=== PATIENT | female | born 1990 | race Caucasian/White ===

== ENCOUNTER 2017-08-11 08:41 | Emergency (ER) | payer MEDICAID, SELFPAY ==
[2017-08-11 08:43] VITALS: BP 116/78; PULSE 98; RESP 17; TEMP 36.7; O2SAT 100; BMI 23.5
--- NOTE | 2017-08-11 10:02 | EKG12_ITS ---
Test Reason : CP Blood Pressure : / mmHG Vent. Rate : 070 BPM Atrial Rate : 070 BPM P-R Int : 118 ms QRS Dur : 066 ms QT Int : 360 ms P-R-T Axes : 044 -07 025 degrees QTc Int : 388 ms Normal sinus rhythm with sinus arrhythmia Normal ECG Confirmed by MARGARITA JOSHI, LAUREL ([id number]), index editor GERTRUDE MORALES ([id number]) on 08/15/2017 3:44:26 PM Referred By: KEREN Confirmed By:LAUREL AVILA MD
[2017-08-11 10:14] VITALS: PULSE 86; RESP 20; O2SAT 100
[2017-08-11] MEDS: Ketorolac 30 MG/ML Syringe IV (10:14)
--- NOTE | 2017-08-11 10:20 | RAD_ITS ---
STUDY: X-RAY CHEST REASON FOR EXAM: Female, 26 years old. Chest pain. TECHNIQUE: PA and lateral views of the chest. COMPARISON: Comparison is made with prior examination dated March 05, 2016. FINDINGS: EKG electrodes are seen. The lungs are clear and expanded. There is no demonstrated pleural abnormality. Normal size heart. Normal mediastinum and huyen. Normal visualized pulmonary arteries. Normal visualized aortic arch and descending thoracic aorta. There is a minimal levoscoliosis of the thoracic spine. Normal visualized ribs, clavicles, and shoulders. There is no demonstrated abnormality of the visualized soft tissue structures of the upper abdomen. RAD/Chest PA and Lateral IMPRESSION: Normal x-ray examination of the chest. Electronically Signed: Storm Rodriguez MD at 10:58 EDT Tel [phone], Service support ,
[2017-08-11 11:08] VITALS: BP 94/62; PULSE 88; RESP 17; O2SAT 100
--- NOTE | 2017-08-11 11:32 | ED.VISSUMM ---
- ER Visit Summary Date of Service: 08/11/17 Chief Complaint: Right-sided chest pain History of Present Illness: The patient is a 26 F who states that today she developed pain on the right anterior chest. She describes it as sharp. Worse with movement of the torso breathing and coughing. Is relieved by nothing. It still hurts at rest though not as bad. She denies any recent surgery she does note a history of renal cancer for which she had a partial nephrectomy. She is on oral contraceptives but does not smoke. No personal or familial history of DVT PE. Physical Examination: Afebrile vital signs are stable Gen: Well-nourished well-developed Head: Normocephalic atraumatic Eyes: Perrl EOMI ENT: TMs clear no rhinorrhea moist mucous membranes Neck: Supple no lymphadenopathy no JVD nontender CVS: Regular rate rhythm no murmurs normal S1-S2 Respiratory: No distress clear to auscultation bilaterally right anterior chest is tender to palpation which reproduces the patient's symptoms. She also has tenderness along the same ribs posteriorly. Abdomen: Soft nontender nondistended normal bowel sounds no masses Back: Nontender Extremity: Nontender no edema Skin: Normal color no rash Neuro: alert orientated ?3 CN II-XII intact normal strength sensation reflexes gait cerebellar Psych: Normal affect normal mood Test Results: EKG done per protocol shows a sinus rhythm at a rate of 70 test x-rays negative. D-dimer 0.40. Emergency Department Course and Treatment: Patient received Toradol. I believe this to be chest wall related. Patient will be discharged home instructions for anti-inflammatories. Return if worsening or concerns Impression: 1. Chest wall pain This note was generated with [employer] dictation software. It may contain incorrect words, spelling, and punctuation that were not noted in review of the chart prior to signing ED Disposition - Plan for ED Patient: Disposition: Home or Assisted Living Chief Complaint: Chest Pain Instructions: ED Chest Pain Costochondritis Referrals: Sebastián Shields MD [Primary Care Provider] - 1 Week if not improving Additional Instructions: Motrin 600 mg every 6-8 hours as needed for pain
[2017-08-11 11:34] VITALS: BP 106/71; PULSE 86; RESP 16; O2SAT 100
--- NOTE | 2017-08-11 11:36 | ED.DCSUM_ITS ---
- ER Visit Summary Date of Service: 08/11/17 Chief Complaint: Right-sided chest pain History of Present Illness: The patient is a 26 F who states that today she developed pain on the right anterior chest. She describes it as sharp. Worse with movement of the torso breathing and coughing. Is relieved by nothing. It still hurts at rest though not as bad. She denies any recent surgery she does note a history of renal cancer for which she had a partial nephrectomy. She is on oral contraceptives but does not smoke. No personal or familial history of DVT PE. Physical Examination: Afebrile vital signs are stable Gen: Well-nourished well-developed Head: Normocephalic atraumatic Eyes: Perrl EOMI ENT: TMs clear no rhinorrhea moist mucous membranes Neck: Supple no lymphadenopathy no JVD nontender CVS: Regular rate rhythm no murmurs normal S1-S2 Respiratory: No distress clear to auscultation bilaterally right anterior chest is tender to palpation which reproduces the patient's symptoms. She also has tenderness along the same ribs posteriorly. Abdomen: Soft nontender nondistended normal bowel sounds no masses Back: Nontender Extremity: Nontender no edema Skin: Normal color no rash Neuro: alert orientated ?3 CN II-XII intact normal strength sensation reflexes gait cerebellar Psych: Normal affect normal mood Test Results: EKG done per protocol shows a sinus rhythm at a rate of 70 test x- rays negative. D-dimer 0.40. Emergency Department Course and Treatment: Patient received Toradol. I believe this to be chest wall related. Patient will be discharged home instructions for anti-inflammatories. Return if worsening or concerns Impression: 1. Chest wall pain This note was generated with [employer] dictation software. It may contain incorrect words, spelling, and punctuation that were not noted in review of the chart prior to signing ED Disposition - Plan for ED Patient: Disposition: Home or Assisted Living Chief Complaint: Chest Pain Instructions: ED Chest Pain Costochondritis Referrals: Sebastián Shields MD [Primary Care Provider] - 1 Week if not improving Additional Instructions: Motrin 600 mg every 6-8 hours as needed for pain
== END 2017-08-11 11:47 | disposition home or self-care (01) ==
PROVIDERS: Emergency Provider Emergency Medicine; Family Provider Family Medicine; PCP Family Medicine
DX: R07.89 Other chest pain (principal)
CPT/HCPCS: 71046; 85379; 93005; 96374; 99284; A4216

== ENCOUNTER 2018-11-15 22:18 | Emergency (ER) | payer MEDICAID, SELFPAY ==
[2018-11-15 22:19] VITALS: BP 116/77; PULSE 138; RESP 18; TEMP 37.1; O2SAT 99; BMI 23.1
--- NOTE | 2018-11-15 22:27 | CT_ITS ---
STUDY: CT BRAIN WITHOUT CONTRAST REASON FOR EXAM: Female, 28 years old. Fall RADIATION DOSAGE (If Supplied By Facility): CTDIvol = ( 44.99 ) mGy, DLP = ( 796.11 ) mGycm TECHNIQUE: Transaxial CT imaging of the brain was performed without administration of intravenous contrast material. Individualized dose optimization techniques were used for this CT. COMPARISON: No relevant priors. FINDINGS: Normal soft tissue structures. Normal calvarium. Normal size ventricles and extra-axial spaces for the patient's age. Normal white matter tracts of the cerebral hemispheres. Normal basal ganglia and thalami. Normal brainstem. Normal cerebellum. There is no intracranial hemorrhage. There are no findings of an acute ischemic infarction. Normal visualized paranasal sinuses. CT/Brain/Head without Contrast IMPRESSION: Normal unenhanced CT scan of the brain. Electronically Signed: Jeremy Luna DO at 23:01 EDT Tel [phone], Service support ,
--- NOTE | 2018-11-15 22:53 | ED.DCSUM_ITS ---
- ER Visit Summary Date of Service: 11/15/18 Chief Complaint: Fall History of Present Illness: The patient is a 28 F presenting after fall. Patient states she was cleaning her bathroom and slipped and fell. She hit her head on the corner of the wall. She did not lose consciousness. No amnesia to the event. She denies nausea or vomiting. States she has had persistent pain to left side of her head throughout the day. She has tried ibuprofen. She is not on anticoagulants. She states she has also had a sore throat for the past several days. She states it is starting to improve. She has had subjective fever. She denies cough, rhinorrhea, or other complaints. Physical Examination: Vitals are stable. Patient is afebrile. Alert no acute distress. HEENT exam PERRL, EOMI. bilateral tonsillar exudate, uvula midline Neck is nontender, no meningismus Lungs are clear and equal bilaterally. Heart is regular and tachycardic Abdomen is soft nontender nondistended. Extremities are unremarkable. Skin is warm and dry. No rash No focal neurologic deficit. Remainder of exam is unremarkable. Emergency Department Course and Treatment: CT head shows no acute process. She was given IV fluids, Tylenol, Pen-Vee K. She is given head injury instructions. Advised to follow-up with her primary care physician. Advised return to ED for worsening complaints. Disposition: Discharge home Impression: Closed head injury status post mechanical fall; pharyngitis This note was generated with [employer] dictation software. It may contain incorrect words, spelling, and punctuation that were not noted in review of the chart prior to signing ED Disposition - Plan for ED Patient: Instructions: CONCUSSION, No Wake Up, PHARYNGITIS, Strep (Presumed) Prescriptions: Penicillin V Potassium 500 mg PO 4X/DAY #40 tab Prescription Printed Referrals: Sebastián Shields MD [Primary Care Provider] -
--- NOTE | 2018-11-15 23:05 | ED.DEP ---
ED Disposition - Plan for ED Patient: Instructions: CONCUSSION, No Wake Up Referrals: Sebastián Shields MD [Primary Care Provider] -
--- NOTE | 2018-11-15 23:17 | ED.DEP ---
ED Disposition - Plan for ED Patient: Instructions: CONCUSSION, No Wake Up, PHARYNGITIS, Strep (Presumed) Prescriptions: Penicillin V Potassium 500 mg PO 4X/DAY #40 tablet Referrals: Sebastián Shields MD [Primary Care Provider] -
[2018-11-15] MEDS: Acetaminophen 500 MG Tablet 1000 MG PO (23:27)
[2018-11-15] MEDS: Penicillin Vk 250 MG Tablet 500 MG PO (23:27)
[2018-11-15] MEDS: 0.9% Normal Saline 1,000 ML 999 ML IV (23:27)
[2018-11-16 00:57] VITALS: BP 96/72; PULSE 111; RESP 16; O2SAT 98
--- NOTE | 2018-11-16 00:58 | ED.RN ---
DR. GRANDE MADE AWARE OF PT PULSE OF 111 AND BP OF 96/72. SAID PT WAS GOOD FOR D/C. PT VERBALIZES UNDERSTANDING OF WRITTEN AND VERBAL DISCHARGE PAPERWORK PT D/C.
== END 2018-11-16 00:55 | disposition home or self-care (01) ==
PROVIDERS: Emergency Provider Emergency Medicine; Family Provider Family Medicine; PCP Family Medicine
DX: S09.90XA Unspecified injury of head, initial encounter (principal); J02.9 Acute pharyngitis, unspecified; W01.0XXA Fall on same level from slipping, tripping and stumbling without subsequent striking against object, initial encounter; Y93.9 Activity, unspecified; Y92.9 Unspecified place or not applicable
CPT/HCPCS: 70450; 96360; 99285; J7030; A4216

== ENCOUNTER 2019-03-27 17:50 | Emergency (ER) | payer MEDICAID, SELFPAY ==
[2019-03-27 17:51] VITALS: BP 124/78; PULSE 100; RESP 16; TEMP 37.1; O2SAT 100; BMI 24.4
--- NOTE | 2019-03-27 18:19 | ED.DCSUM_ITS ---
History of Present Illness Chief Complaint: Abd Pain Informant: Patient - Abdominal Pain/Flank Pain Onset: Today - Mild cramping all day today in her lower abdomen, sharp pain started 15 minutes prior to arrival Context: Gradual Onset Timing: Continuous Quality: Cramping, Sharp Location: - - Lower abdomen, nonlateralizing, with radiation to low back Current Severity: Moderate Maximum Severity: Severe Worsened by: Nothing Relieved by: Nothing - Has tried no medications today - Nausea/Vomiting/Emesis GI Symptom: Nausea. Negative for: Vomiting - Diarrhea/Melena/Hematochezia GI Symptom: Negative for: Diarrhea, Melena, Hematochezia Associated Symptoms: Negative for: Dysuria, Frequency, Hematuria, Urgency LMP: 2-3 weeks ago, but had vaginal bleeding like a menstrual cycle 8 days ago that only lasted 1 day and none since. Usually regular. Denies presumed . Narrative: Normal bowel movement today, no blood or melena. No urinary symptoms. Denies any vaginal discharge or history of STDs or suspicion for an STD currently. No fevers. Had a history of kidney cancer and had the mass removed from her right kidney. Recent Illness/Hospitalization: No - Past Medical History (1) Renal cancer Status: Chronic Past Medical History - Allergies and Home Meds Allergies/Adverse Reactions: Allergies No Known Allergies Allergy (Verified 03/27/19 17:51) Primary Care Physician: Sebastián Shields MD [Primary Care Provider] - Surgical History: - - Renal cancer resection right kidney Smoking Status: Never smoker Drugs: None Review of Systems General: Denies: Chills, Fever, Sweats Eyes: Denies: Visual changes - bilaterally, Diplopia ENT: Denies: Rhinorrhea, Sore throat Cardiovascular: Denies: Chest pain, Palpitations Respiratory: Denies: Dyspnea, Cough, Dyspnea on exertion Gastrointestinal: Reports: Abdominal pain, Nausea. Denies: Vomiting, Diarrhea, Melena, Hematochezia Genitourinary: Reports: - - No vaginal bleeding or discharge currently. Denies: Dysuria, Hematuria, Frequency Musculoskeletal: Reports: Back pain. Denies: Extremity Pain Skin: Denies: Rash, Wounds Neurological: Denies: Headache, Weakness, Numbness Physical Exam Vital Signs/Narrative: Vital Signs Temp Pulse Resp BP Pulse Ox 03/27/19 17:51 98.7 F 100 16 124/78 H 100 Inital Vital Signs reviewed: Yes General: Well nourished, Well developed, No Acute Distress - Appearing, conversive, smiles Head: Normocephalic, Atraumatic Eyes: Perrl, EOMI ENT: Moist mucous membranes, No rhinorrhea Neck: Supple, Nontender Cardiovascular: Regular rate, Regular rhythm, No murmurs Respiratory: No distress, CTA bilaterally, Chest nontender Abdomen: Soft, Nondistended, Normal bowel sounds, Tender - Throughout lower abdomen, nonlateralizing. No other abdominal tenderness.. Negative for: Guarding, Rebound tenderness, Pulsatile mass Back: Nontender, Normal Inspection. Negative for: CVA tenderness Extremities: Nontender, No edema Skin: Normal color, No rash, No Trauma Neurological: Alert, Oriented x3, Cranial nerves II-XII grossly intact, Normal Strength, Normal Sensation, Normal Gait Psychological: Normal affect, Normal Mood Diagnostic/Tx/Re-eval Laboratory Results 03/27/19 03/27/19 03/27/19 18:55 18:55 18:55 WBC 7.8 RBC 4.07 L Hgb 12.3 Hct 36.5 L MCV 89.7 MCH 30.2 MCHC 33.7 RDW Std Deviation 38.7 RDW Coeff of Biju 11.9 Plt Count 250 MPV 10.3 Immature Gran % (Auto) 0.400 Neut % (Auto) 56.8 Lymph % (Auto) 30.1 [place] % (Auto) 7.7 Eos % (Auto) 4.5 Baso % (Auto) 0.5 Absolute Neuts (auto) 4.4 Absolute Lymphs (auto) 2.34 Nucleated RBC % 0 Sodium 141 Potassium 3.8 Chloride 104 Carbon Dioxide 33.0 H Anion Gap 4 L BUN 15 Creatinine 1.01 Estim Creat Clear Calc 58.50 Est GFR (MDRD) Af Amer 83 Est GFR (MDRD) Non-Af 68 BUN/Creatinine Ratio 14.9 Glucose 103 Calcium 8.5 Serum , Qual NEGATIVE Urine Color Urine Clarity Urine pH Ur Specific [place] Urine Protein Urine Glucose (UA) Urine Ketones Urine Occult Blood Urine Nitrite Urine Bilirubin Urine Urobilinogen Ur Leukocyte Esterase Urine RBC Urine WBC Ur Squamous Epith Cells Urine Bacteria Urine Mucus 03/27/19 19:15 WBC RBC Hgb Hct MCV MCH MCHC RDW Std Deviation RDW Coeff of Biju Plt Count MPV Immature Gran % (Auto) Neut % (Auto) Lymph % (Auto) [place] % (Auto) Eos % (Auto) Baso % (Auto) Absolute Neuts (auto) Absolute Lymphs (auto) Nucleated RBC % Sodium Potassium Chloride Carbon Dioxide Anion Gap BUN Creatinine Estim Creat Clear Calc Est GFR (MDRD) Af Amer Est GFR (MDRD) Non-Af BUN/Creatinine Ratio Glucose Calcium Serum , Qual Urine Color Yellow Urine Clarity Clear Urine pH 7.0 Ur Specific [place] 1.005 Urine Protein Negative Urine Glucose (UA) Normal Urine Ketones Negative Urine Occult Blood Negative Urine Nitrite Negative Urine Bilirubin Negative Urine Urobilinogen Normal Ur Leukocyte Esterase 100 H Urine RBC 0-5 SEEN Urine WBC 0-5 SEEN Ur Squamous Epith Cells 0-5 SEEN Urine Bacteria 0 SEEN Urine Mucus 0 SEEN - Medical Decision Making Patient feels much better after Toradol. I suspect this could have been uterine pain, however with a negative no emergent ultrasound is indicated at this time. I do not suspect that she has torsion with nonlateralizing pain and such a benign exam. Her labs are unremarkable otherwise and her urinalysis is negative. Since Toradol helped so much I will place her on Naprosyn and advised that she follow-up with her network support as an outpatient. She is comfortable with that plan we discussed reasons to return. ED Disposition - Plan for ED Patient: Disposition: Home or Assisted Living Diagnosis: Lower abdominal pain Instructions: ABDOMINAL PAIN, Unknown Cause, (Female) Prescriptions: Naproxen [Naprosyn] 500 mg PO BID PRN #20 tab Transmission Status: Pending to [id number] Referrals: Sebastián Shields MD [Primary Care Provider] - [facility] [Provider Group] - 1 Week if not improving
[2019-03-27] MEDS: Ketorolac 30 MG/ML Syringe IV (19:05)
[2019-03-27] MEDS: Ondansetron 4 MG/2 ML Vial IV (19:05)
[2019-03-27 19:17] LABS: Absolute Lymphocyte Count 2.34 X10^3/uL (0.83-4.51); Absolute Neutrophil Count 4.4 X10^3/uL (2.0-7.7); Basophil# 0.04 X10^3/uL; Basophil% 0.5 % (0-1); Eosinophil# 0.35 X10^3/uL; Eosinophils% 4.5 % (0-5); Hematocrit 36.5 % (37-47); Hemoglobin 12.3 g/dL (12.0-15.0); Lymphocyte # 2.34 X10^3/ul (4.0); Lymphocyte % 30.1 % (19-41); Mean Corp Hgb Conc 33.7 g/dL (32-36); Mean Corpuscular Hgb 30.2 pg (27.0-32.0); Mean Corpuscular Volume 89.7 fL (81-99); Mean Platelet Vol. 10.3 fl (6.2-12.0); Monocyte% 7.7 % (0-10); NRBC Flagged by Analyzer 0 % (0-5); Neutrophil # 4.42 X10^3/uL (2.7-7.7); Neutrophil % 56.8 % (47-70); Platelet Count 250 K/mm3 (150-450); RBC Distribution Width CV 11.9 % (11.6-14.6); RBC Distribution Width SD 38.7 fl (35.1-43.9); Red Blood Count 4.07 M/mm3 (4.2-5.4); White Blood Count 7.8 K/mm3 (4.4-11.0)
[2019-03-27 19:21] LABS: Bacteria 0 SEEN /hpf (None Seen); Color, Urine Yellow (Yellow); Glucose, Dipstick Normal (Normal); Ketone-Dipstick Negative (Negative); Leukocyte Esterase-Dipstick 100 /ul (Negative); Mucous, Urine 0 SEEN /hpf (<or=2+); Nitrite-Dipstick Negative (Negative); Occult Blood-Urine Negative /ul (Negative); Protein-Dipstick Negative (Negative); Specific Gravity, Urine 1.005 (1.002-1.030); Urine Bilirubin Dipstick Negative (Negative); Urine Clarity Clear (Clear); Urine Urobilinogen Normal (Normal)
[2019-03-27 19:27] LABS: Red Blood Cells-Urine 0-5 SEEN /hpf (0-5); Squamous Epithelial Cells - UA 0-5 SEEN /hpf (5-10); White Blood Cells 0-5 SEEN /hpf (0-5)
[2019-03-27 19:29] LABS: Internal QC Validated? YES +Cl - CLEAR BKGD; Pregnancy, Serum, hCG Quali. NEGATIVE Negative
[2019-03-27 19:34] LABS: Anion Gap 4 (5-15); BUN 15 mg/dL (7-18); BUN/Creat Ratio 14.9 RATIO (10-20); Calcium,Total 8.5 mg/dL (8.5-10.1); Chloride 104 mmol/L (98-107); Creatinine, Serum 1.01 mg/dL (0.55-1.02); EST Glomerular Filtration Rate 68 mL/min (>60); Est Glom Filt Rate - Afr Amer 83 mL/min (>60); Glucose 103 mg/dL (74-106); Potassium 3.8 mmol/L (3.5-5.1); Sodium Level 141 mmol/L (136-145)
== END 2019-03-27 20:34 | disposition home or self-care (01) ==
PROVIDERS: Emergency Provider Emergency Medicine; PCP Family Medicine
DX: R10.30 Lower abdominal pain, unspecified (principal); R11.0 Nausea; M54.9 Dorsalgia, unspecified; Z85.528 Personal history of other malignant neoplasm of kidney
CPT/HCPCS: 80048; 81001; 84703; 85025; 96374; 96375; 99283; A4216; J2405

== ENCOUNTER 2020-02-10 10:59 | Emergency (ER) | payer MEDICAID, SELFPAY ==
[2020-02-10 11:01] VITALS: BP 115/68; PULSE 112; RESP 17; TEMP 36.9; O2SAT 98; BMI 24.4
--- NOTE | 2020-02-10 12:33 | ED.RN ---
pt went to ob
== END 2020-02-10 12:35 | disposition left against medical advice (07) ==
LOC: ED 11:34
PROVIDERS: Emergency Provider Emergency Medicine; PCP Family Medicine
DX: Z53.21 Procedure and treatment not carried out due to patient leaving prior to being seen by health care provider (principal)

== ENCOUNTER 2020-02-10 11:10 | Outpatient (CLI) | payer MEDICAID, SELFPAY ==
[2020-02-10] VITALS (20 sets, daily range): BP systolic 97–113; BP diastolic 50–75; PULSE 95–167; TEMP 36.8–37.1; O2SAT 90–100; BMI 24.4; BMI 25.7
[2020-02-10 12:15] LABS: Mucous, Urine 0 SEEN /hpf (<or=2+); Red Blood Cells-Urine 0 SEEN /hpf (0-5)
[2020-02-10 12:16] LABS: Color, Urine Yellow (Yellow); Glucose, Dipstick Normal (Normal); Ketone-Dipstick Negative (Negative); Leukocyte Esterase-Dipstick 500 /ul (Negative); Nitrite-Dipstick Negative (Negative); Occult Blood-Urine Negative /ul (Negative); Protein-Dipstick Negative (Negative); Urine Bilirubin Dipstick Negative (Negative); Urine Clarity Cloudy (Clear); Urine Urobilinogen Normal (Normal)
[2020-02-10 12:30] LABS: Bacteria 2+ /hpf (None Seen); Squamous Epithelial Cells - UA 5-10 SEEN /hpf (5-10); White Blood Cells 10-25 SEEN /hpf (0-5)
[2020-02-10 12:46] LABS: Fetal Fibronectin Negative
[2020-02-10] MEDS: Betamethasone/Betamethasone 30 MG/5 ML Vial 12 MG IM (12:54)
[2020-02-10] MEDS: Lactated Ringers 1,000 ML 999 ML IV (13:25)
[2020-02-10 13:33] LABS: Hematocrit 31.9 % (37-47); Mean Corp Hgb Conc 34.5 g/dL (32-36); Mean Corpuscular Hgb 30.9 pg (27.0-32.0); Mean Corpuscular Volume 89.6 fL (81-99); Mean Platelet Vol. 10.8 fl (6.2-12.0); Platelet Count 154 K/mm3 (150-450); RBC Distribution Width CV 12.2 % (11.6-14.6); RBC Distribution Width SD 39.6 fl (35.1-43.9); Red Blood Count 3.56 M/mm3 (4.2-5.4); White Blood Count 15.6 K/mm3 (4.4-11.0)
[2020-02-10] MEDS: Lactated Ringers 1,000 ML 150 ML IV (14:50)
[2020-02-10] MEDS: Magnesium Sulfate 4gm/100mL 4 GM/100 ML IV.SOLN. IV (15:01)
--- NOTE | 2020-02-10 15:10 | OB.TRI.NOTE ---
<Juliette Alvarez - Last Filed: 02/10/20 15:51> - Problem List (1) labor Status: Acute (2) labor Status: Acute (3) History of delivery Status: Acute (4) History of anxiety Status: Acute (5) History of chlamydia Status: Acute (6) History of trichomoniasis Status: Acute (7) Abnormal AFP screen Status: Acute History of Present Illness Was patient seen by the physician?: Yes Reason For Visit: ABDOMINAL PAIN Date of Service: 02/10/20 Final RJ: 04/05/20 Gestational age: 32 Weeks and 1 Days History of Present Illness: presents at 32w1d by first trimester ultrasound. Presented to labor and delivery with complaint of contractions that started at 0300 this am. Upon arrival at 1150 this am initial cervical exam half centimeter. Contractions mild and irritability. PO hydration and then IV fluid bolus given. Allergies No Known Allergies Allergy (Verified 02/10/20 11:01) Laboratory Studies: Laboratory Tests 02/10/20 02/10/20 02/10/20 Range/Units 13:25 13:25 13:25 WBC 15.6 H (4.4-11.0) K/mm3 RBC 3.56 L (4.2-5.4) M/mm3 Hgb 11.0 L (12.0-15.0) g/dL Hct 31.9 L (37-47) % MCV 89.6 (81-99) fL MCH 30.9 (27.0-32.0) pg MCHC 34.5 (32-36) g/dL RDW Std Deviation 39.6 (35.1-43.9) fl RDW Coeff of Biju 12.2 (11.6-14.6) % Plt Count 154 (150-450) K/mm3 MPV 10.8 (6.2-12.0) fl Urine Color (Yellow) Urine Clarity (Clear) Urine pH (5.0 - 8.0) Ur Specific [place] (1.002-1.030) Urine Protein (Negative) mg/dl Urine Glucose (UA) (Normal) mg/dl Urine Ketones (Negative) mg/dl Urine Occult Blood (Negative) /ul Urine Nitrite (Negative) Urine Bilirubin (Negative) mg/dL Urine Urobilinogen (Normal) mg/dl Ur Leukocyte Esterase (Negative) /ul Urine RBC (0-5) /hpf Urine WBC (0-5) /hpf Ur Squamous Epith Cells (5-10) /hpf Urine Bacteria (None Seen) /hpf Urine Mucus (<or=2+) /hpf Fibronectin Blood Type O NEGATIVE Antibody Screen POSITIVE TNP 02/10/20 02/10/20 Range/Units 11:55 11:30 WBC (4.4-11.0) K/mm3 RBC (4.2-5.4) M/mm3 Hgb (12.0-15.0) g/dL Hct (37-47) % MCV (81-99) fL MCH (27.0-32.0) pg MCHC (32-36) g/dL RDW Std Deviation (35.1-43.9) fl RDW Coeff of Biju (11.6-14.6) % Plt Count (150-450) K/mm3 MPV (6.2-12.0) fl Urine Color Yellow (Yellow) Urine Clarity Cloudy (Clear) Urine pH 6.0 (5.0 - 8.0) Ur Specific [place] 1.010 (1.002-1.030) Urine Protein Negative (Negative) mg/dl Urine Glucose (UA) Normal (Normal) mg/dl Urine Ketones Negative (Negative) mg/dl Urine Occult Blood Negative (Negative) /ul Urine Nitrite Negative (Negative) Urine Bilirubin Negative (Negative) mg/dL Urine Urobilinogen Normal (Normal) mg/dl Ur Leukocyte Esterase 500 H (Negative) /ul Urine RBC 0 SEEN (0-5) /hpf Urine WBC 10-25 SEEN (0-5) /hpf Ur Squamous Epith Cells 5-10 SEEN (5-10) /hpf Urine Bacteria 2+ (None Seen) /hpf Urine Mucus 0 SEEN (<or=2+) /hpf Fibronectin Negative Blood Type Antibody Screen Review of Systems Constitutional: Denies: Chills, Fever, Weight Change HEENT: Denies: Head Aches, Sinus Congestion, Sinus Drainage Cardiovascular: Denies: Chest Pain, Palpitations Respiratory: Denies: Cough, Shortness of breath at rest, Sputum production Gastrointestinal: Denies: Abdominal Pain, Nausea, Vomiting Genitourinary: Denies: Dysuria Musculoskeletal: Denies: Joint Pain, Joint Tenderness Skin: Denies: Rash, Wounds Neurological: Denies: Numbness, Tingling, Focal weakness Psychiatric: Denies: Anxiety, Depression, Homicidal Ideations, Suicidal Ideations Hematologic/ Lymphatic: Denies: Easy Bruising, Easy Bleeding Physical Exam Vitals: Vital Signs Temp Pulse BP Pulse Ox 98.7 F 140 H 113/75 98 02/10/20 14:28 02/10/20 15:04 02/10/20 15:01 02/10/20 15:04 O negative, antibody screen negative RPR negative HIV negative HBsAG negative HepC negative GC/CT negative 1hr GCT normal Urine tox screen negative at initial OB visit. Rubella Immune General: Alert, Oriented x3, Cooperative HEENT: Atraumatic, Normocephalic Cardiovascular: Regular rate, Regular Rhythm, No murmurs Lungs: Clear to auscultation, Normal air movement, No rhonchi, No wheeze Abdomen: Gravid Extremities:: No edema Neurological: Deep Tendon Reflexes 2+/4 and Symmetrical. Negative for: Clonus [employer] MACHINE OPERATOR: Normal external genitalia Estimated gestational size: Appropriate for gestational size Presentation: Cephalic Cervix Dilation (cm): 2 - vertex with intact BOW. Station: -1 Effacement (%): 80 - Limited bedside US shows cephalic presentation. NST - FHR Rate Baby A Baseline: 125 Variability:: Moderate Accelerations:: 15 x 15 Decelerations:: None NST Reactive:: Yes FHR Category:: Category I Uterine Activity:: every 1-4 minutes, moderate to palpation. Impression/Plan A:29 year old at 32w1d by ultrasound labor P: 1) Triage patient and progression of cervical exam after PO with IV hydration 1 Liter LR. Cervical exam progressed from 0.5cm/50%/unable to feel presenting part per nursing exam and progressed in 3 hrs to 2cm/80%/-1 vertex and IBOW. 2) Will start Magnesium Sulfate IV 4 gram load and then 2g/hr for tocolysis as initial plan, consulted Dr.Stewart HUMMEL at [facility] and recommend D/C of Magnesium and would to start Procardia 30mg XL 3) Celestone 12mg IM x 1 at 1254 4) GBS obtained, will start IV prophylaxis for unknown GBS status with PCN G 5 million 5) COVID test obtained 6) Patient offered transportation due to early gestational age to [facility] or [place], patient requests [facility]. Transportation called and 2hr for arrival. 7) notified of patient status and collaborative physician. Referral of patient care and will contact [facility] for transition of care. <Wali Denson - Last Filed: 02/10/20 16:13> History of Present Illness Laboratory Studies: Laboratory Tests 02/10/20 02/10/20 02/10/20 Range/Units 13:25 13:25 13:25 WBC 15.6 H (4.4-11.0) K/mm3 RBC 3.56 L (4.2-5.4) M/mm3 Hgb 11.0 L (12.0-15.0) g/dL Hct 31.9 L (37-47) % MCV 89.6 (81-99) fL MCH 30.9 (27.0-32.0) pg MCHC 34.5 (32-36) g/dL RDW Std Deviation 39.6 (35.1-43.9) fl RDW Coeff of Biju 12.2 (11.6-14.6) % Plt Count 154 (150-450) K/mm3 MPV 10.8 (6.2-12.0) fl Urine Color (Yellow) Urine Clarity (Clear) Urine pH (5.0 - 8.0) Ur Specific [place] (1.002-1.030) Urine Protein (Negative) mg/dl Urine Glucose (UA) (Normal) mg/dl Urine Ketones (Negative) mg/dl Urine Occult Blood (Negative) /ul Urine Nitrite (Negative) Urine Bilirubin (Negative) mg/dL Urine Urobilinogen (Normal) mg/dl Ur Leukocyte Esterase (Negative) /ul Urine RBC (0-5) /hpf Urine WBC (0-5) /hpf Ur Squamous Epith Cells (5-10) /hpf Urine Bacteria (None Seen) /hpf Urine Mucus (<or=2+) /hpf Fibronectin Blood Type O NEGATIVE Antibody Screen POSITIVE TNP 02/10/20 02/10/20 Range/Units 11:55 11:30 WBC (4.4-11.0) K/mm3 RBC (4.2-5.4) M/mm3 Hgb (12.0-15.0) g/dL Hct (37-47) % MCV (81-99) fL MCH (27.0-32.0) pg MCHC (32-36) g/dL RDW Std Deviation (35.1-43.9) fl RDW Coeff of Biju (11.6-14.6) % Plt Count (150-450) K/mm3 MPV (6.2-12.0) fl Urine Color Yellow (Yellow) Urine Clarity Cloudy (Clear) Urine pH 6.0 (5.0 - 8.0) Ur Specific [place] 1.010 (1.002-1.030) Urine Protein Negative (Negative) mg/dl Urine Glucose (UA) Normal (Normal) mg/dl Urine Ketones Negative (Negative) mg/dl Urine Occult Blood Negative (Negative) /ul Urine Nitrite Negative (Negative) Urine Bilirubin Negative (Negative) mg/dL Urine Urobilinogen Normal (Normal) mg/dl Ur Leukocyte Esterase 500 H (Negative) /ul Urine RBC 0 SEEN (0-5) /hpf Urine WBC 10-25 SEEN (0-5) /hpf Ur Squamous Epith Cells 5-10 SEEN (5-10) /hpf Urine Bacteria 2+ (None Seen) /hpf Urine Mucus 0 SEEN (<or=2+) /hpf Fibronectin Negative Blood Type Antibody Screen Physical Exam Vitals: Vital Signs Temp Pulse BP Pulse Ox 98.7 F 125 H 97/50 L 100 02/10/20 14:28 02/10/20 15:46 02/10/20 15:46 02/10/20 15:44 Impression/Plan Patient seen & examined. Discussed patient with & plan for transport to [facility]. All questions answered & patient agrees with plan. Cervix re-examined & stable at 2/80/-1. Transport on way.
[2020-02-10] MEDS: Magnesium Sulfate 20 GM/500 ML BAG IV (15:22)
[2020-02-10] MEDS: NIFEdipine 30 MG Tablet PO (15:58)
[2020-02-10 16:40] LABS: Group B Strep DNA By PCR POSITIVE (Negative); Probe Check PASS
== END 2020-02-10 18:05 | disposition home or self-care (01) ==
LOC: WPOUT 11:16 → OBT 11:17
PROVIDERS: PCP Family Medicine; Visit Provider Advanced Practice Midwife
DX: O60.03 Preterm labor without delivery, third trimester (principal); Z3A.32 32 weeks gestation of pregnancy
CPT/HCPCS: 96361 ×4; 96365; 96368; 96372; 96375; 36415; 59025; 59050; 76815; 81001; 82731; 85027; 86850; 86870; 86900; 86901; 87086; 87088; 87426; 87653; 99218; G0378; J0702

== ENCOUNTER 2020-02-13 15:42 | Outpatient (CLI) | payer MEDICAID, SELFPAY ==
[2020-02-10 11:21] VITALS: BMI 25.7
[2020-02-13 15:45] VITALS: BMI 25.8
[2020-02-13 16:10] VITALS: BP 103/63; PULSE 90; TEMP 36.8; O2SAT 100; O2SAT 99
[2020-02-13 18:41] VITALS: BP 85/53; PULSE 104; O2SAT 98
[2020-02-13 18:42] VITALS: BP 93/54; PULSE 103; TEMP 36.9
--- NOTE | 2020-02-22 08:39 | OB.TRI.NOTE ---
- Problem List (1) 32 weeks gestation of Status: Acute (2) Uterine contractions Status: Acute History of Present Illness Date of Service: 02/13/20 Reason For Visit: R/O PRE TERM LABOR Final RJ: 04/05/20 Gestational age: 33 Weeks and 6 Days History of Present Illness: Presents for r/o labor Allergies No Known Allergies Allergy (Verified 02/13/20 15:56) Physical Exam Vitals: Vital Signs Temp Pulse BP Pulse Ox 98.4 F 103 H 93/54 L 98 02/13/20 18:42 02/13/20 18:42 02/13/20 18:42 02/13/20 18:41 NST - FHR Rate Baby A Baseline: 145 Variability:: Moderate Accelerations:: 15 x 15 Decelerations:: None NST Reactive:: Yes Uterine Activity:: Occasional ctx's Impression/Plan NST reactive Not in PTL at this time D/c home with follow up in office
== END 2020-02-13 18:55 | disposition home or self-care (01) ==
LOC: WPOUT 15:44 → WP 15:45
PROVIDERS: PCP Family Medicine; Referring Provider Obstetrics & Gynecology; Visit Provider Obstetrics & Gynecology
DX: O62.9 Abnormality of forces of labor, unspecified (principal); Z3A.33 33 weeks gestation of pregnancy
CPT/HCPCS: 59025; 59050; 99218; G0378

== ENCOUNTER 2020-03-04 23:25 | Outpatient (CLI) | payer MEDICAID, SELFPAY ==
[2020-03-04 23:31] VITALS: BMI 26.4
[2020-03-04 23:36] VITALS: BP 107/71; PULSE 105; TEMP 36.4; O2SAT 97
[2020-03-05 00:45] LABS: Bacteria 0 SEEN /hpf (None Seen); Mucous, Urine 0 SEEN /hpf (<or=2+); Red Blood Cells-Urine 0 SEEN /hpf (0-5)
[2020-03-05 00:46] LABS: Color, Urine Yellow (Yellow); Glucose, Dipstick Normal (Normal); Ketone-Dipstick Negative (Negative); Leukocyte Esterase-Dipstick 25 /ul (Negative); Nitrite-Dipstick Negative (Negative); Occult Blood-Urine Negative /ul (Negative); Protein-Dipstick Negative (Negative); Urine Bilirubin Dipstick Negative (Negative); Urine Clarity Clear (Clear); Urine Urobilinogen Normal (Normal)
[2020-03-05 00:52] LABS: Squamous Epithelial Cells - UA 0-5 SEEN /hpf (5-10); White Blood Cells 0-5 SEEN /hpf (0-5)
[2020-03-05 01:58] VITALS: TEMP 36.9
[2020-03-05 01:59] VITALS: BP 102/64; PULSE 104; O2SAT 99
--- NOTE | 2020-03-05 05:44 | OB.TRI.NOTE ---
History of Present Illness Date of Service: 03/05/20 Was patient seen by the physician?: Yes Reason For Visit: R/O LABOR Date of Service: 03/05/20 Final RJ: 04/06/20 Final RJ Source: US <20 weeks Gestational age: 35 Weeks and 3 Days History of Present Illness: 29 YOF high risk multigravida w/ h/o PTD presents c/o ctxs. No VB/LOF. Good FM> Ctx intensity the same or less than last night. She reports she was able to sleep and rest intermittently Allergies No Known Allergies Allergy (Verified 03/04/20 23:41) Laboratory Studies: Laboratory Tests 03/05/20 Range/Units 00:40 Urine Color Yellow (Yellow) Urine Clarity Clear (Clear) Urine pH 7.0 (5.0 - 8.0) Ur Specific Creede 1.010 (1.002-1.030) Urine Protein Negative (Negative) mg/dl Urine Glucose (UA) Normal (Normal) mg/dl Urine Ketones Negative (Negative) mg/dl Urine Occult Blood Negative (Negative) /ul Urine Nitrite Negative (Negative) Urine Bilirubin Negative (Negative) mg/dL Urine Urobilinogen Normal (Normal) mg/dl Ur Leukocyte Esterase 25 H (Negative) /ul Urine RBC 0 SEEN (0-5) /hpf Urine WBC 0-5 SEEN (0-5) /hpf Ur Squamous Epith Cells 0-5 SEEN (5-10) /hpf Urine Bacteria 0 SEEN (None Seen) /hpf Urine Mucus 0 SEEN (<or=2+) /hpf Physical Exam Vitals: Vital Signs Temp Pulse BP Pulse Ox 98.5 F 104 H 102/64 99 03/05/20 01:58 03/05/20 01:59 03/05/20 01:59 03/05/20 01:59 General: Alert, Cooperative, No apparent distress Abdomen: Soft, Non Tender, Non-Distended, Gravid, Appropriate for Gestational Age Extremities:: Other - edema1+ AUTOMOTIVE MAINTENANCE TECHNICIAN: Normal external genitalia Estimated gestational size: Appropriate for gestational size Presentation: Cephalic Cervix Dilation (cm): 3 Station: -2 Effacement (%): 80 NST - FHR Rate Baby A Baseline: 130 Variability:: Moderate Accelerations:: 15 x 15 NST Reactive:: Appropriate for gestational age FHR Category:: Category I - before dicharge Uterine Activity:: irreg ctxs Impression/Plan 29 YOF high risk multigravida at 35 3/7 weeks w/ threatened labor, h/o previous PTD Has already had betamethasone x2 previously and since not in labor today, not repeated kick counts f/u in office as scheduled or return here if needed she is comfortable w/ plan
== END 2020-03-05 06:00 | disposition home or self-care (01) ==
LOC: WPOUT 23:27 → OBT 23:28 → WP 03-05 00:05
PROVIDERS: PCP Family Medicine; Referring Provider Obstetrics & Gynecology; Visit Provider Obstetrics & Gynecology
DX: O60.03 Preterm labor without delivery, third trimester (principal); O09.93 Supervision of high risk pregnancy, unspecified, third trimester; Z3A.35 35 weeks gestation of pregnancy
CPT/HCPCS: 59025; 59050; 81001; 99218; G0378

== ENCOUNTER 2020-03-11 17:45 | Inpatient (IN) | payer MEDICAID, SELFPAY ==
[2020-03-11] VITALS (45 sets, daily range): BP systolic 88–132; BP diastolic 50–86; PULSE 76–148; TEMP 36.2–36.7; O2SAT 73–100; BMI 26.5
--- NOTE | 2020-03-11 | PLAC_PTH ---
PATIENT: WESTON KAUFMAN LOC: [facility] U#:[id number] AGE/SX: 29/F ROOM: [facility] RE03/11/[address]: Dr. Maria De Jesus Zuluaga, MDDOB: 1990 BED: 1 DIS: 03/13/2020 SPEC #: [id number] RECD: 03/11/20 13:10 STATUS: KEVIN VISH #: [id number] DMITRY: 03/11/20 00:[address]: Maria De Jesus Zuluaga DEPT: SURGICAL PATHOLOGY RECD BY: Konrad Bermudez ENTERED: 03/12/20 09:32 SP TYPE: PLACENTA OTHR DR: Dr. Sebastián Shields MD Tissues: Placenta, NOS Procedures: Surgery Specimen Level V HEADER OPERATION: Vaginal delivery PRE-OP DIAGNOSIS: delivery, small placenta for gestational age TISSUE SUBMITTED: Placenta MICROSCOPIC DIAGNOSIS Kwong placenta (320 gm): Umbilical cord - trivascular with no inflammation. Placental membranes - no pathologic change. Placental disc - mild Meghana-Zeyad change. AM:shantell 03/13/2020 MICROSCOPIC DESCRIPTION Slides are reviewed. GROSS DESCRIPTION SPECIMEN: PLACENTA / CLINICAL INFORMATION: A. Weight: 2.565 kg B. Gestational Age: 36 weeks C. Sex: Male PLACENTAL WEIGHT (POST FIXATION): 320 gm PLACENTAL DIMENSIONS: 16 x 12 x 3 cm PLACENTAL SHAPE: Usual ovoid PLACENTAL WEIGHT FOR GESTATIONAL AGE: Within 10-99th percentile MEMBRANES - Present A. Insertion: Marginal B. Site of rupture from edge: 4.5 cm from edge of placental disc C. Color of membrane: Slaughter-fournier D. Abnormalities: None UMBILICAL CORD - Present A. Color: Slaughter-fournier B. Insertion: Eccentric C. Length: 32 cm D. Diameter: 1.5 cm E. Number of vessels: Three F. Abnormalities: None PLACENTAL DISC - Present A. Color of surface: Slaughter-fournier B. surface abnormalities: None C. Maternal cotyledons: Intact with minimal tears D. Attached retro placental clot: No clot E. Cut surface: Dark red and spongy F. Lesions: None G. Separate clot: Absent SECTIONS SUBMITTED: 1. Umbilical cord ( end notched) 2. Umbilical cord, placental end 3. Membrane roll 4. Placental disc, and maternal surfaces 5. Placental disc, and maternal surfaces 6. Placental disc, and maternal surfaces AM:shantell 03/12/20 TC:5 CPT: 24852
[2020-03-11 17:35] LABS: Color, Urine Yellow (Yellow); Glucose, Dipstick Normal (Normal); Ketone-Dipstick Negative (Negative); Leukocyte Esterase-Dipstick 500 /ul (Negative); Nitrite-Dipstick Negative (Negative); Occult Blood-Urine Negative /ul (Negative); Protein-Dipstick 15 mg/dl (Negative); Specific Gravity, Urine 1.005 (1.002-1.030); Urine Bilirubin Dipstick Negative (Negative); Urine Clarity Sl. Cloudy (Clear); Urine Urobilinogen Normal (Normal)
[2020-03-11 17:43] LABS: ROM Internal Control Test YES-OK TO RESULT pt. (Internal QC)
[2020-03-11 17:44] LABS: ROM Patient Test POSITIVE (Negative)
--- NOTE | 2020-03-11 17:56 | HP.PCM_ITS ---
History Date of Admission: 05/14/10 Final RJ: 04/05/20 Final RJ Source: US <20 weeks Gestational age: 36 Weeks and 3 Days History of this : This is a 29 year-old, @ 36.3 weeks c/o contractions every 3-5min since 8am and SROM around 1pm. ROM plus was positive and patient admitted for ROM and labor. Medical History: Medical History (Last Updated 03/11/20 @ 18:[address] Maria De Jesus Zuluaga MD) labor in third trimester (Acute) O60.03 History of delivery (Acute) Z87.51 Elevated AFP (Acute) R77.2 Trichomoniasis (Acute) A59.9 Chlamydia (Acute) A74.9 Renal cell carcinoma (Acute) C64.9 Allergies No Known Allergies Allergy (Verified 03/04/20 23:41) Home Medications: Home Medications Aspirin [Aspirin, Baby] 81 mg PO DAILY@0800 02/10/20 Hydroxyprogesterone Caproate [Canoncito] 250 mg IM Q7D 02/10/20 Vits [Prenatabs FA] 1 tab PO DAILY 02/10/20 Smoking Status: Never smoker Alcohol: None Number of Fetus(es): 1 History Past Pregnancies: Past Pregnancies Delivery Date Name GA/ Weeks Outcome Route Wt Sex Labor Length Anesthesia Delivery Location Provider FOB Labs: rh negative, GBS unknown Expected Delivery Method: Spontaneous Vaginal Describe any other labor & delivery plans:: Forebag ruptured- clear fluid. Will augment with pitocin. Review of Systems Constitutional: Denies: Anorexia Eyes: Denies: Blurred vision, Pain HEENT: Denies: Difficulty Hearing, Head Aches Cardiovascular: Denies: Chest Pain Gastrointestinal: Reports: Abdominal Pain - from contractions Physical Exam Vitals: Vital Signs Temp Pulse BP Pulse Ox 98.0 F 91 111/66 99 03/11/20 17:09 03/11/20 17:10 03/11/20 17:09 03/11/20 17:10 General: Alert, Oriented x3 Abdomen: Soft, Non Tender, Gravid Neurological: Cranial nerves II-XII grossly intact INTELLIGENCE OFFICER BASIC: Normal external genitalia Estimated gestational size: Appropriate for gestational size Presentation: Cephalic Cervix Dilation (cm): 3.5 Station: -1 Effacement (%): 90 Assessment/Plan All Active Problems labor (Acute) labor (Acute) History of delivery (Acute) History of anxiety (Acute) History of chlamydia (Acute) History of trichomoniasis (Acute) Abnormal AFP screen (Acute) 32 weeks gestation of (Acute) Uterine contractions (Acute) Ecchymosis (Acute) Pleuritic chest pain (Acute) This is a 29 year-old, @36.2 weeks with SROM, labor 1) admit to L&D 2) rapid GBS 3) Celestone 4) anticipate 5) Monitor fhr/toco
[2020-03-11] MEDS: Lactated Ringers 1,000 ML 50 ML IV (18:19)
[2020-03-11] MEDS: Oxytocin 30 units/NS 500 ml 30 UNITS/500 ML IV.SOLN IV (18:35)
[2020-03-11 18:38] LABS: Absolute Lymphocyte Count 3.21 X10^3/uL (0.83-4.51); Absolute Neutrophil Count 9.2 X10^3/uL (2.0-7.7); Basophil# 0.07 X10^3/uL; Basophil% 0.5 % (0-1); Eosinophil# 0.18 X10^3/uL; Eosinophils% 1.3 % (0-5); Hematocrit 32.6 % (37-47); Hemoglobin 11.4 g/dL (12.0-15.0); Lymphocyte # 3.21 X10^3/ul (4.0); Lymphocyte % 23.3 % (19-41); Mean Corpuscular Hgb 31.5 pg (27.0-32.0); Mean Corpuscular Volume 90.1 fL (81-99); Mean Platelet Vol. 11.3 fl (6.2-12.0); Monocyte# 0.82 X10^3/uL; NRBC Flagged by Analyzer 0 % (0-5); Neutrophil # 9.24 X10^3/uL (2.7-7.7); Neutrophil % 67.2 % (47-70); Platelet Count 174 K/mm3 (150-450); RBC Distribution Width CV 12.5 % (11.6-14.6); Red Blood Count 3.62 M/mm3 (4.2-5.4); White Blood Count 13.8 K/mm3 (4.4-11.0)
[2020-03-11] MEDS: Lactated Ringers 500 ML 999 ML IV ×3 (19:40→23:44)
[2020-03-11 19:54] LABS: Group B Strep DNA By PCR POSITIVE (Negative)
[2020-03-11 19:55] LABS: Probe Check PASS
[2020-03-11] MEDS: fentaNYL-bupivacaine (epidural) 100 ML BAG EPIDURAL (20:10)
[2020-03-11] MEDS: Lactated Ringers 1,000 ML 200 ML IV (21:17)
[2020-03-12] VITALS (39 sets, daily range): BP systolic 93–188; BP diastolic 49–123; PULSE 62–214; RESP 14–16; TEMP 36.6–37.3; O2SAT 84–100
[2020-03-12] MEDS: Oxytocin 30 units/NS 500 ml 30 UNITS/500 ML IV.SOLN 334 UNITS IV (00:14)
--- NOTE | 2020-03-12 00:21 | PCM.OPRPT ---
Vaginal Delivery Maternal Presentation: Spontaneous Rupture of Membranes, - - labor Method of Induction: - - augmentation with Pitocin Amniotic Membrane Rupture Type: Spontaneous at home Rupture of Membrane time: 1300 Amniotic Fluid Description: Clear Final RJ: 04/05/20 Final RJ Source: US <20 weeks Gestational age: 36 Weeks and 4 Days Date of Procedure: 03/12/20 - 4 delivery time Pre-Operative Diagnosis: SROM, labor Post-Operative Diagnosis: same, live male Surgery/ Procedure Performed: Spontaneous Vaginal Delivery Type of Anesthesia: Epidural Description of Procedure: of live male infant. Good maternal pushing efforts delivered head, loose nuchal x 2 reduced prior to delivery. Gentle downward traction with good maternal pushing delivered without complication. Infant placed on mother chest for immediate skin to skin. Delayed cord clamping performed. Placenta delivered intact- noted to be small for GA- will send to pathology. no vaginal laceration appreciated. Presentation: Vertex Placental Delivery Description: Spontaneous Placenta Disposition: Routine to Lab Cord Vessel Description: 3 Vessels Nuchal Cord Compression: Without compression Cord Entanglement: Around neck x 2, loose Estimated Blood Loss: 150 A gender: Male (1 minute): 9 (5 minute): 9 Episiotomy Description: None Laceration: None Medications given after delivery: IV Pitocin Complications: None
[2020-03-12 01:19] LABS: Pathology Specimen OB SEE PATHOLOGY REPORT
[2020-03-12] MEDS: Acetaminophen 500 MG Tablet 1000 MG PO (20:18)
[2020-03-13 00:20] VITALS: BP 106/67; PULSE 77; RESP 14; TEMP 36.6
[2020-03-13 04:15] VITALS: BP 96/64; PULSE 82
[2020-03-13 04:18] VITALS: BP 96/64; PULSE 82; RESP 16; TEMP 36.5
[2020-03-13] MEDS: Ibuprofen 600 MG Tablet PO (07:32)
[2020-03-13 07:34] VITALS: BP 104/67; PULSE 84
[2020-03-13 07:58] VITALS: BP 104/67; PULSE 84; RESP 16; TEMP 36.6
--- NOTE | 2020-03-13 08:31 | PN.OBGYN_ITS ---
Subjective: Patient seen at bedside. Feeling good. Breast and bottle feeding infant. Ambulating and voiding without difficulty. Desires discharge home today. - Physical Exam Vitals/I&O's: Vital Signs Temp Pulse Resp BP Pulse Ox 97.8 F 84 16 104/67 100 03/13/20 07:58 03/13/20 07:58 03/13/20 07:58 03/13/20 07:58 03/12/20 02:30 Oxygen Delivery Method Room Air Weight: 136 lb Body Mass Index (BMI) 26.5 Intake and Output for Last 24 Hours 03/11/20 03/12/20 03/13/20 23:59 23:59 23:59 Intake Total 2325.52 / 2325.52 1011.4 / 1011.4 Output Total 1400 / 1400 Balance 2325.52 / 2325.52 -388.6 / -388.6 General: Alert, Oriented x3 HEENT: Atraumatic Neck: Supple Lungs: Normal air movement Cardiovascular: Regular rate Abdomen: Soft Skin: No rashes Neurological: Cranial nerves II-XII grossly intact Psych/Mental Status: Normal Affect Microbiology Past 72 Hours 03/11/20 18:15 Mucosa - Nose SARS-CoV-2 Antigen (Rapid) - Final Current Medications Acetaminophen (Acetaminophen 500 Mg Tablet) 1,000 mg PO Q8H PRN PRN PRN Reason: Pain Score 1-3 Last Admin: 03/12/20 20:18 Dose: 1,000 mg Documented by: Bisacodyl (Bisacodyl 10 Mg Suppository) 10 mg RECTAL UD PRN PRN Reason: If no BM Dibucaine (Dibucaine 30 Gm Tube) 1 applic TOPICAL TID PRN PRN; Protocol PRN Reason: Discomfort Hydrocortisone (Hydrocortisone 2.5% Crm) 1 applic TOPICAL TID PRN PRN; Protocol PRN Reason: Discomfort Ibuprofen (Ibuprofen 600 Mg Tablet) 600 mg PO Q6H PRN PRN PRN Reason: Pain Score 1-3 Last Admin: 03/13/20 07:32 Dose: 600 mg Documented by: Methylergonovine Maleate (Methylergonovine 0.2 Mg/Ml Ampul) 0.2 mg IM X1 PRN PRN Reason: Excess bleeding/uterine atony Ondansetron HCl (Ondansetron 4 Mg/2 Ml Vial) 4 mg IV Q4H PRN PRN PRN Reason: Nausea Senna/Docusate Sodium (Senna/Docusate Sodium 1 Tablet) 1 - 2 tablet PO DAILY PRN PRN PRN Reason: Constipation Simethicone (Simethicone 80 Mg Tablet) 80 mg PO PCHS PRN PRN Reason: Indigestion/Stomach pain Sodium Chloride (0.9% Saline Lock 10 Ml Syringe) 5 - 15 ml IV UD PRN PRN Reason: SALINE FLUSH Medical Necessity - Tobacco Use Smoking Status: Never smoker Assessment/Plan All Active Problems (Last Updated 03/11/20 @ 18:[address] Maria De Jesus Sandoval MD) Pleuritic chest pain (Acute) Ecchymosis (Acute) labor (Acute) labor (Acute) History of delivery (Acute) History of anxiety (Acute) History of chlamydia (Acute) History of trichomoniasis (Acute) Abnormal AFP screen (Acute) 32 weeks gestation of (Acute) Uterine contractions (Acute) labor in third trimester (Acute) History of delivery (Acute) Elevated AFP (Acute) Trichomoniasis (Acute) Chlamydia (Acute) Renal cell carcinoma (Acute) PPD #2 intact Routine care Breast feeding support Discharge home with follow up in office
--- NOTE | 2020-03-13 08:34 | DCINST_ITS ---
Discharge Diet: No Restrictions May resume sexual activity in: 6-8 weeks Additional Instructions: If you experience any of the following, contact your healthcare provider. * Bleeding that soaks a pad every hour for 2 hours * Fever 100.4 or higher * Unrelieved incision or abdominal pain * Swelling, redness, discharge or bleeding from your incision or episiotomy site * Your incision begins to separate * Problems urinating (including inability to urinate or burning while urinating). * Visual changes * Severe headache * Flu-like symptoms * Pain or redness in one of both of your breasts * Pain, warmth, tenderness or swelling in your legs, especially the calf area * Frequent nausea and vomiting * Symptoms of depression or anxiety If you experience any of the following, call 911 or go to the nearest Emergency Room. * Chest pain * Problems breathing * Seizure activity * Partial or complete paralysis of a body part, slurred speech, weakness or drooping of the face, or a sudden inability to walk or hold your balance Allergies/Adverse Reactions: Allergies No Known Allergies Allergy (Verified 03/04/20 23:41) Medications to take at Discharge Vits [Prenatabs FA] 1 tab PO DAILY 02/10/20 Please Follow Up With: office When: 2 weeks and 6 weeks- Nexplanon insertion Primary Care Physician: Sebastián Shields MD [Primary Care Provider] - Test Results: Test results from this visit will be discussed in further detail at your follow- up appointment, if applicable.
--- NOTE | 2020-03-13 08:34 | PCM.DCVAG ---
Discharge Diet: No Restrictions May resume sexual activity in: 6-8 weeks Additional Instructions: If you experience any of the following, contact your healthcare provider. Bleeding that soaks a pad every hour for 2 hours Fever 100.4 or higher Unrelieved incision or abdominal pain Swelling, redness, discharge or bleeding from your incision or episiotomy site Your incision begins to separate Problems urinating (including inability to urinate or burning while urinating). Visual changes Severe headache Flu-like symptoms Pain or redness in one of both of your breasts Pain, warmth, tenderness or swelling in your legs, especially the calf area Frequent nausea and vomiting Symptoms of depression or anxiety If you experience any of the following, call 911 or go to the nearest Emergency Room. Chest pain Problems breathing Seizure activity Partial or complete paralysis of a body part, slurred speech, weakness or drooping of the face, or a sudden inability to walk or hold your balance Allergies/Adverse Reactions: Allergies No Known Allergies Allergy (Verified 03/04/20 23:41) Medications to take at Discharge Vits [Prenatabs FA] 1 tab PO DAILY 02/10/20 Please Follow Up With: office When: 2 weeks and 6 weeks- Nexplanon insertion Primary Care Physician: Sebastián Shields MD [Primary Care Provider] - Test Results: Test results from this visit will be discussed in further detail at your follow-up appointment, if applicable.
== END 2020-03-13 12:15 | disposition home or self-care (01) | DRG 560 ==
LOC: WPOUT 17:50 → WP 17:50
PROVIDERS: Admitting Provider Obstetrics & Gynecology; PCP Family Medicine; Referring Provider Obstetrics & Gynecology; Visit Provider Obstetrics & Gynecology
DX: O60.14X0 Preterm labor third trimester with preterm delivery third trimester, not applicable or unspecified (principal); O69.81X0 Labor and delivery complicated by cord around neck, without compression, not applicable or unspecified; Z3A.36 36 weeks gestation of pregnancy; Z37.0 Single live birth; Z85.528 Personal history of other malignant neoplasm of kidney
CPT/HCPCS: 59025; 59050; 81002; 84112; 85025; 85461; 86850; 86870; 86900; 86901; 87426; 87653; 88307; 90384; 99218; J7120; G0378; J2790

== ENCOUNTER 2020-05-30 09:03 | Emergency (ER) | payer MEDICAID, SELFPAY ==
[2020-03-11 17:15] VITALS: BMI 26.5
[2020-05-30 09:03] VITALS: BP 100/70; PULSE 91; RESP 16; TEMP 36; O2SAT 100; BMI 24.4
--- NOTE | 2020-05-30 09:21 | EKG12_ITS ---
Test Reason : ABD PAIN Blood Pressure : / mmHG Vent. Rate : 073 BPM Atrial Rate : 073 BPM P-R Int : 146 ms QRS Dur : 066 ms QT Int : 372 ms P-R-T Axes : 068 -18 029 degrees QTc Int : 409 ms Normal sinus rhythm Low voltage QRS Borderline ECG Confirmed by FREDDIE JOSHI, BARRERA ([id number]), newspaper photo editor SIDNEY MAGDALENO ([id number]) on 06/02/2020 9:45:21 AM Referred By: DEEPIKA Confirmed By:CHARLIE FRAZIER MD
--- NOTE | 2020-05-30 09:24 | ED.DCSUM_ITS ---
- ER Visit Summary Date of Service: 05/30/20 Chief Complaint: Abdominal pain and chest pain History of Present Illness: The patient is a [address] Shields. She reports that she has lower abdominal pain that began 3 days ago. It has been gradual in onset. It is continuous and waxes and wanes. It is 8 out of 10 at worst and 2 out of 10 currently. It is worsened by eating anything. She denies any specific spicy or fatty food intolerance. She reports pain is worsened approximately 30 minutes later. It is unchanged with movement. Nothing seems to make this better. She has had nausea without vomiting. No diarrhea. Her last bowel movement was yesterday. No melena or hematochezia. No dysuria or frequency. Last menstrual period was 2 weeks ago. No vaginal bleeding or discharge. She has never had anything like this before. Patient reports that she has a cough that began 2 days ago. Is nonproductive. However, she does have mild difficulty breathing. She reports that she has chest pain that started yesterday. Said intermittent pain the last few seconds at a time. Is a sharp. Is 5-10 at worst and she is pain-free currently. She reports that this is not worsened by deep breaths, exertion, or movement of her torso. Still residual relieved by nothing. No personal family history of DVT. No recent travel. No ankle swelling or calf pain. Patient denies any possible exposure to Covid. She does wear a mask. She denies fever or chills. Physical Examination: Vitals: Stable. Afebrile. General: Well-nourished and well-developed. Head: Normocephalic atraumatic. Neck: Supple, no lymphadenopathy. No JVD. Nontender. Cardiovascular: Regular rate and rhythm. No murmurs. Respiratory: No respiratory distress. Clear to auscultation bilaterally. Abdominal: Soft, nontender, nondistended, normal bowel sounds. No guarding, rebound, or peritoneal signs. Back: Nontender. Extremities: Nontender, no edema. Skin: Normal color, no rash. Neurologic: Alert and oriented ?3. Cranial nerves II through XII are intact. Normal strength and sensation. Psych: Normal affect. Test Results: EKG is sinus at 73 with artifact. Troponin is negative. D-dimer 0.52. test is negative. LFTs are normal. Lipase is 96. Chem-7 shows a creatinine 1.19. Covid is negative. CBC is normal. Urinalysis shows 10-25 white blood cells. No bacteria. Clinical Impression(s) from Imaging Studies Chest X-Ray 05/30/20 09:50 IMPRESSION: Normal x-ray examination of the chest. Electronically Signed: Storm Rodriguez MD at 10:04 EDT , Service support , Chest CTA 05/30/20 10:05 IMPRESSION: Normal CTA chest examination, without a demonstrated pulmonary embolism or arterial dissection. Electronically Signed: Storm Rodriguez MD at 10:33 EDT , Service support , Emergency Department Course and Treatment: Patient had an IV placed. She was given a liter normal saline. She was given Zofran and Toradol IV. She is resting more comfortably. Treatment Plan: Patient will be discharged with Zofran and Keflex. Instructed follow-up with her primary care physician in 1 week if not improving. Return to the emergency department for any worsening symptoms. Disposition: To home in improved and stable condition. Impression: 1. UTI. 2. Atypical chest pain. This note was generated with [employer] dictation software. It may contain incorrect words, spelling, and punctuation that were not noted in review of the chart prior to signing ED Disposition - Plan for ED Patient: Instructions: ED Urinary Tract Infections in Women, ED Chest Pain, Uncertain Cause Prescriptions: Cephalexin [Keflex] 500 mg PO Q12 #14 capsule Ondansetron [Zofran Odt] 4 mg PO Q8H PRN PRN #10 tablet PRN Reason: Nausea Referrals: Sebastián Shields MD [Primary Care Provider] - 1 Week if not improving
[2020-05-30 09:31] LABS: Absolute Lymphocyte Count 2.08 X10^3/uL (0.83-4.51); Absolute Neutrophil Count 4.3 X10^3/uL (2.0-7.7); Basophil# 0.04 X10^3/uL; Basophil% 0.6 % (0-1); Eosinophil# 0.24 X10^3/uL; Eosinophils% 3.3 % (0-5); Hematocrit 39.7 % (37-47); Hemoglobin 13.2 g/dL (12.0-15.0); Lymphocyte # 2.08 X10^3/ul (0.83-4.51); Lymphocyte % 28.8 % (19-41); Mean Corp Hgb Conc 33.2 g/dL (32-36); Mean Corpuscular Hgb 29.7 pg (27.0-32.0); Mean Corpuscular Volume 89.4 fL (81-99); Mean Platelet Vol. 10.6 fl (6.2-12.0); Monocyte# 0.53 X10^3/uL; Monocyte% 7.3 % (0-10); NRBC Flagged by Analyzer 0 % (0-5); Neutrophil # 4.32 X10^3/uL (2.7-7.7); Neutrophil % 59.9 % (47-70); Platelet Count 227 K/mm3 (150-450); RBC Distribution Width CV 11.9 % (11.6-14.6); RBC Distribution Width SD 38.1 fl (35.1-43.9); Red Blood Count 4.44 M/mm3 (4.2-5.4); White Blood Count 7.2 K/mm3 (4.4-11.0)
[2020-05-30 09:35] LABS: Internal QC Validated? YES +Cl - CLEAR BKGD; Pregnancy, Serum, hCG Quali. NEGATIVE Negative
[2020-05-30 09:44] LABS: D-Dimer Quantitative (DVT/PE) 0.52 FEU/ug/m (0.27-0.49)
[2020-05-30] MEDS: Ondansetron 4 MG/2 ML Vial IV (09:44)
[2020-05-30] MEDS: Ketorolac 15 MG/ML Vial IV (09:44)
[2020-05-30] MEDS: 0.9% Normal Saline 1,000 ML 1000 ML IV (09:44)
[2020-05-30 09:47] LABS: ALB/GLOB Ratio 1.1 RATIO (0.9-2.4); AST(SGOT) 20 U/L (15-37); Alanine Aminotransfer ALT/SGPT 32 U/L (13-56); Albumin, Serum 3.7 g/dL (3.2-5.0); Alkaline Phosphatase 87 U/L (45-117); Anion Gap 6 (5-15); BUN 16 mg/dL (7-18); BUN/Creat Ratio 13.4 RATIO (10-20); Calcium,Total 8.8 mg/dL (8.5-10.1); Chloride 106 mmol/L (98-107); Creatinine, Serum 1.19 mg/dL (0.55-1.02); EST Glomerular Filtration Rate 56 mL/min (>60); Est Glom Filt Rate - Afr Amer 68 mL/min (>60); Globulin 3.3 g/dL (2.2-4.2); Glucose 93 mg/dL (74-106); Lipase 96 U/L (73-393); Potassium 3.5 mmol/L (3.5-5.1); Sodium Level 141 mmol/L (136-145)
--- NOTE | 2020-05-30 09:50 | RAD_ITS ---
STUDY: X-RAY CHEST REASON FOR EXAM: Female, 29 years old. Cough TECHNIQUE: Single AP portable view of the chest. COMPARISON: Comparison is made with prior study dated 08/11/2017. FINDINGS: EKG electrodes are seen. The lungs are clear and expanded. There is no demonstrated pleural abnormality. Normal size heart. Normal mediastinum and huyen. Normal visualized pulmonary arteries. Normal visualized aortic arch and descending thoracic aorta. Normal visualized thoracic spine. Normal visualized ribs, clavicles, and shoulders. There is no demonstrated abnormality of the visualized soft tissue structures of the upper abdomen. RAD/Chest 1 View (Portable) IMPRESSION: Normal x-ray examination of the chest. Electronically Signed: Storm Rodriguez MD at 10:04 EDT , Service support ,
--- NOTE | 2020-05-30 10:05 | CT_ITS ---
STUDY: CTA CHEST REASON FOR EXAM: Female, 29 years old. PE. Recent abdominal surgery. RADIATION DOSAGE (If Supplied By Facility): CTDIvol = ( 5.25 ) mGy, DLP = ( 180.75 ) mGycm TECHNIQUE: The examination was performed with the intravenous administration of IV 100mL Isovue-370. Post-processing of the angiographic images was performed, with multiplanar reformation and 3D reconstruction. Individualized dose optimization techniques were used for this CT. COMPARISON: Comparison is made with prior study dated 09/22/2013. FINDINGS: Normal enhancement of the main pulmonary artery and right and left pulmonary arteries. Normal enhancement of the bilateral peripheral pulmonary arteries. There is no demonstrated pulmonary embolism. Normal thoracic aorta and visualized great vessels. There is no demonstrated aortic dissection. Normal heart and pericardium. Normal mediastinum. Normal hilar regions. Normal visualized trachea and bronchi. The lungs are well expanded. Normal pulmonary parenchyma. Normal pleura. Normal chest wall structures. Normal osseous structures. Normal visualized upper abdomen. CT/CTA Chest W/WO Contrast IMPRESSION: Normal CTA chest examination, without a demonstrated pulmonary embolism or arterial dissection. Electronically Signed: Storm Rodriguez MD at 10:33 EDT , Service support ,
[2020-05-30 10:58] LABS: Bacteria 0 SEEN /hpf (None Seen); Mucous, Urine 0 SEEN /hpf (<or=2+); Red Blood Cells-Urine 0 SEEN /hpf (0-5)
[2020-05-30 11:03] LABS: Color, Urine Yellow (Yellow); Glucose, Dipstick Normal (Normal); Ketone-Dipstick Negative (Negative); Leukocyte Esterase-Dipstick 100 /ul (Negative); Nitrite-Dipstick Negative (Negative); Occult Blood-Urine Negative /ul (Negative); Protein-Dipstick Negative (Negative); Specific Gravity, Urine 1.005 (1.002-1.030); Urine Bilirubin Dipstick Negative (Negative); Urine Clarity Sl. Cloudy (Clear); Urine Urobilinogen Normal (Normal)
[2020-05-30 11:06] VITALS: BP 101/71; PULSE 83; RESP 18; O2SAT 100
[2020-05-30 11:11] LABS: Squamous Epithelial Cells - UA 0-5 SEEN /hpf (5-10); White Blood Cells 10-25 SEEN /hpf (0-5)
[2020-05-30] MEDS: Cephalexin 500 MG Capsule PO (11:33)
[2020-05-30 11:37] VITALS: BP 101/69; O2SAT 98
== END 2020-05-30 11:47 | disposition home or self-care (01) ==
LOC: ED 11:43
PROVIDERS: Emergency Provider Emergency Medicine; PCP Family Medicine
DX: N39.0 Urinary tract infection, site not specified (principal); R07.89 Other chest pain; Z85.528 Personal history of other malignant neoplasm of kidney
CPT/HCPCS: 71045; 71275; 80053; 81001; 83690; 84484; 84703; 85025; 85379; 87426; 93005; 96361; 96374; 96375; 99285; J7030; Q9967; A4216; J2405

== ENCOUNTER 2022-03-04 15:15 | Outpatient (CLI) | payer MEDICAID, SELFPAY ==
[2022-03-04 15:35] VITALS: BMI 21.4
[2022-03-04 15:40] VITALS: BP 100/61; PULSE 101; TEMP 36.7
[2022-03-04 16:21] LABS: ROM Internal Control Test YES-OK TO RESULT pt. (Internal QC); ROM Patient Test Negative (Negative)
--- NOTE | 2022-03-12 18:02 | OB.TRI.NOTE ---
HPI - General General Date of Admission: 02/01/22 Date of Service: 02/01/22 Chief Complaint: LOF HPI Narrative WESTON KAUFMAN, is a 31 F who presented with possible LOF. No ctx, cramping, pain, vb. PFSH PFSH Medical History (Updated 03/12/22 @ 18:[address] Nova Vázquez, DO) Chlamydia Elevated AFP History of delivery labor in third trimester Renal cell carcinoma Trichomoniasis Home Medications cephalexin 500 mg capsule 500 mg PO Q12 #14 CAPSULES 05/30/20 [Rx Last Taken Unknown] ondansetron 4 mg disintegrating tablet 4 mg PO Q8H PRN PRN Nausea #10 tabs 05/30/20 [Rx Last Taken Unknown] Allergy/AdvReac Type Severity Reaction Status Date / Time No Known Allergies Allergy Verified 05/30/20 09:05 Social History Smoking Status: Never smoker History Elective abortions Hx Para 2 Spontaneous abortions Hx # Term Pregnancies Ectopic pregnancies Hx # Pregnancies Multiple births # of living children NST FHR Rate Baby A Baseline: +FHT Uterine Activity:: No ctx's Assessment & Plan (1) 22 weeks gestation of : PLAN: Dr. Toma Redding was called by nursing staff to evaluate the patient as the patient was admitted under her as the provider. Per RN, Dr. Prieto performed a SSE that was negative for rupture. ROM Plus was negative. No pain, cramping or ctx's. Has follow up in the office. Ok to discharge home. +FHT. (2) Vaginal discharge:
== END 2022-03-04 17:00 | disposition home or self-care (01) ==
LOC: WPOUT 15:25 → WP 15:34
PROVIDERS: Obstetrics & Gynecology; PCP Family Medicine; Visit Provider Obstetrics & Gynecology
DX: O99.891 Other specified diseases and conditions complicating pregnancy (principal); Z3A.22 22 weeks gestation of pregnancy; N89.8 Other specified noninflammatory disorders of vagina
CPT/HCPCS: 59050; 84112; 99221; G0378

== ENCOUNTER 2022-04-29 14:50 | Outpatient (CLI) | payer MEDICAID, SELFPAY ==
[2022-04-29] VITALS (9 sets, daily range): BP systolic 107; BP diastolic 69; PULSE 119–130; TEMP 36.8; O2SAT 96–99; BMI 22.7
[2022-04-29] MEDS: Lactated Ringers 1,000 ML 999 ML IV (15:05)
--- NOTE | 2022-04-29 17:57 | OB.TRI.HP_ITS ---
HPI - General General Date of Admission: 04/29/22 Date of Service: 04/29/22 HPI Narrative WESTON KAUFMAN, is a 31 F @ 28.6 weeks who presents to the office for routine visits- c/o contractions every 10min and possible Loss of mucous plug. she was seen in office by AYAH Chan. Pt advised she needed to return to [facility] due to cervical dilation and bulging membranes- pt reprots she had no ride and needed a transport. Decison to send to [facility] to obtain medical transport. [facility] Medical History (Updated 04/29/22 @ 17:[address] Maria De Jesus Zuluaga MD) Chlamydia Elevated AFP History of delivery labor in third trimester Renal cell carcinoma Trichomoniasis Home Medications ferrous sulfate 325 mg (65 mg iron) tablet (Iron (ferrous sulfate)) 325 mg PO QODAY 04/29/22 [History Last Taken Unknown] hydroxyprogest(PF)(preg presv) 275 mg/1.1 mL subcut auto-inject (Isha (PF)) 275 mg subcut QWEEK 04/29/22 [History Last Taken Unknown] vit no.95-ferrous fumarate 28 mg-folic acid 800 mcg tablet () 1 tab PO DAILY 04/29/22 [History Last Taken Unknown] Allergy/AdvReac Type Severity Reaction Status Date / Time No Known Allergies Allergy Verified 04/29/22 15:01 Social History Smoking Status: Never smoker History Elective abortions Hx Para 2 Spontaneous abortions Hx # Term Pregnancies Ectopic pregnancies Hx # Pregnancies Multiple births # of living children Assessment & Plan (1) 28 weeks gestation of : (2) labor: (3) History of delivery: (4) Uterine contractions: PLAN: Plan @ 28.6 weeks, labor 1) previous admission to [facility]- [place] CHAN reviewed with MFM Dr. Fischer and accepts to [facility] service 2) Pt was evaluated in office- was not seen on L&D prior to transport arrival. 3) BPP in office 09/14
== END 2022-04-29 15:48 | disposition short-term general hospital (02) ==
LOC: WPOUT 14:57 → WP 14:58
PROVIDERS: PCP Family Medicine; Referring Provider Obstetrics & Gynecology; Visit Provider Obstetrics & Gynecology
DX: O60.03 Preterm labor without delivery, third trimester (principal); Z3A.28 28 weeks gestation of pregnancy
CPT/HCPCS: 96360; 59025; 59050; 99221; J7120; G0378

== ENCOUNTER 2023-05-17 02:10 | Emergency (ER) | payer MEDICAID, SELFPAY ==
[2023-05-17 02:10] VITALS: BP 113/80; PULSE 94; RESP 16; TEMP 36.6; O2SAT 100; BMI 20.7
--- NOTE | 2023-05-17 02:31 | RAD_ITS ---
EXAM: XR CHEST, 1 VIEW CLINICAL INDICATION: pain TECHNIQUE: Frontal view of the chest. COMPARISON: May 30, 2020. FINDINGS: LUNGS AND PLEURAL SPACES: Unremarkable. No consolidation or edema. No pneumothorax. No effusion. HEART: Unremarkable. Cardiac silhouette not enlarged. MEDIASTINUM: Central airways and mediastinal contour are unremarkable. BONES/JOINTS: Unremarkable. No acute fracture. SOFT TISSUES: Unremarkable. RAD/Chest 1 View (Portable) IMPRESSION: No radiographic evidence of acute cardiopulmonary disease. Electronically Signed: Lazaro Conner MD at 4:14 EDT ,
--- NOTE | 2023-05-17 02:31 | EKG12_ITS ---
Test Reason : Blood Pressure : / mmHG Vent. Rate : 076 BPM Atrial Rate : 076 BPM P-R Int : 120 ms QRS Dur : 078 ms QT Int : 362 ms P-R-T Axes : 069 -04 047 degrees QTc Int : 407 ms Normal sinus rhythm Normal ECG Confirmed by Raffy Whitlock ([id number]), makeup editor SIDNEY MAGDALENO ([id number]) on 05/18/2023 5:47:08 AM Referred By: KEREN Confirmed By:Raffy Whitlock
--- NOTE | 2023-05-17 02:32 | EX.ED.DYSGE1 ---
HPI History of Present Illness Chief Complaint: Dizziness Informant: patient Narrative Narrative: 32-year-old female presenting to the emergency room chief complaint of nausea and dizziness. Patient states that here today she had a very brief sharp pain left upper back. She states it went away. She laid down tonight pain came back chief got up felt nauseous and off-balance when she attempted to walk. She denies any recent illnesses. No diarrhea. No vomiting. No dyspnea or chest pain. She states symptoms were not resolving so she decided to come to emergency. She currently takes no medications. Remote history of renal cancer with surgery to remove a small section of the kidney. She otherwise states she has been very healthy. [facility] Medical History Chlamydia Elevated AFP History of delivery labor in third trimester Renal cell carcinoma Trichomoniasis Home Medications ferrous sulfate 325 mg (65 mg iron) tablet (Iron (ferrous sulfate)) 325 mg PO QODAY 04/29/22 [History Last Taken Unknown] hydroxyprogest(PF)(preg presv) 275 mg/1.1 mL subcut auto-inject ([place]sha (PF)) 275 mg subcut QWEEK 04/29/22 [History Last Taken Unknown] vit no.95-ferrous fumarate 28 mg-folic acid 800 mcg tablet () 1 tab PO DAILY 04/29/22 [History Last Taken Unknown] Allergy/AdvReac Type Severity Reaction Status Date / Time No Known Allergies Allergy Verified 05/17/23 02:13 Social History Smoking Status: Never smoker ROS ROS ED Constitutional Constitutional ED: Denies chills, fever(s) or weight loss Eyes Eyes: Denies change in vision or diplopia ENT ENT ED: Denies ear pain, rhinorrhea or sore throat Cardiovascular Cardiovascular: Denies chest pain, orthopnea, palpitations or racing heartbeat Respiratory/Chest Respiratory/Chest: Denies cough, dyspnea or orthopnea Gastrointestinal Gastrointestinal: Reports nausea; Denies abdominal pain, diarrhea or vomiting Genitourinary Genitourinary ED: Denies dysuria, hematuria or urinary frequency Musculoskeletal Musculoskeletal: Reports back pain; Denies arthralgias or myalgias Integumentary Denies abscess or rash Neurologic Neurologic: Reports other Details: dizziness ; Denies headache(s), paresthesias or weakness Psychiatric Psychiatric: Denies anxiety, depression, suicidal ideation or suicidal thoughts Endocrine Endocrinology: Denies polydipsia, polyphagia or polyuria Allergic/Immunologic Allergic/Immunologic ED: Denies mouth swelling, tongue swelling or urticaria EXAM Physical Exam Const Vital Signs: 05/17/23 02:10 05/17/23 04:30 Temperature 98 F 98.2 F Temperature Source Temporal Pulse Rate 94 71 Respiratory Rate 16 16 Blood Pressure 113/80 100/73 Blood Pressure Mean 91 82 Pulse Ox 100 99 Oxygen Delivery Method Room Air Positive well nourished and well developed General Appearance ED: well developed HEENT Reports normocephalic, head/scalp atraumatic and moist mucous membranes Eyes PERRL and EOMs intact bilaterally Neck no lymphadenopathy, supple and no JVD Resp normal respiratory effort and clear to auscultation bilaterally Cardio regular rate, regular rhythm and no murmurs GI normal to inspection, nondistended, normoactive bowel sounds and non-tender Palpation: soft Back/Spine no CVA tenderness and normal ROM Extremity normal to inspection General Extremety ED: Negative for edema General Extremity: Negative for edema Neuro oriented x3 and CN's II-XII intact bilaterally Sensorium / Orientation: alert Motor Exam: strength 5/5 throughout Psych mental status grossly normal Mood & Affect: Negative for depressed or tearful Skin no rashes or lesions noted and no wounds MDM MDM MDM Narrative Medical decision making narrative: Differential diagnosis includes but not limited to pulmonary embolism ACS pleural effusion pneumonia viral illness pancreatitis liver disease Patient received Toradol Zofran and IV fluids. White count 7.1 with a hemoglobin 11.5. D-dimer 0.33. Troponin normal at less than 3 test negative. Glucose 130 creatinine 1.23 which is chronic for her. Liver enzymes within normal limits. My independent interpretation of the chest x-ray is no acute process Repeat examination shows the patient to be feeling significantly better. The back pain may simply be musculoskeletal in nature. Certainly the dizziness could be related to the nausea. I think it safe for the patient to be discharged home and to return if symptoms persist worsen or she has concerns. History & Record Review Discussion w/independent historian: Patient Lab Data Attestation: I reviewed the patient's lab results. Labs: Laboratory Results - last 24 hr 05/17/23 03:00 WBC 7.1 RBC 3.90 L Hgb 11.5 L Hct 34.5 L MCV 88.5 MCH 29.5 MCHC 33.3 RDW Std Deviation 40.0 RDW Coeff of Biju 12.4 Plt Count 192 MPV 10.4 Immature Gran % (Auto) 0.100 Neut % (Auto) 51.3 Lymph % (Auto) 35.8 [place] % (Auto) 7.5 Eos % (Auto) 4.7 Baso % (Auto) 0.6 Absolute Neuts (auto) 3.6 Absolute Lymphs (auto) 2.53 Nucleated RBC % 0 D-Dimer Quant (PE/DVT) 0.33 Sodium 140 Potassium 3.5 Chloride 106 Carbon Dioxide 29.0 Anion Gap 5 BUN 18 Creatinine 1.23 H Estim Creat Clear Calc 46.29 Est GFR (MDRD) Af Amer 64 Est GFR (MDRD) Non-Af 53 L BUN/Creatinine Ratio 14.6 Glucose 130 H Calcium 8.6 Total Bilirubin 0.50 AST 14 L ALT 18 Alkaline Phosphatase 64 Troponin I High Sens < 3 L Total Protein 6.1 L Albumin 3.2 Globulin 2.9 Albumin/Globulin Ratio 1.1 Serum , Qual NEGATIVE Radiography Diagnostic Testing: Clinical Impression(s) from Imaging Studies Chest X-Ray 05/17/23 02:31 IMPRESSION: No radiographic evidence of acute cardiopulmonary disease. Electronically Signed: Lazaro Conner MD at 4:14 EDT , EKG Initial EKG: Attestation: I personally reviewed and interpreted this EKG as follows: Comments: Normal sinus rhythm ventricular of 76 bpm Discharge Plan Triage Chief Complaint: Dizziness ED Provider: Que Toussaint Dx/Rx/DC Orders Clinical Impression: Dizziness, Back pain, Nausea Prescriptions: No Action ferrous sulfate [Iron (ferrous sulfate)] 325 mg (65 mg iron) Tablet 325 mg PO QODAY PNV cmb#95-ferrous fumarate-FA [] 28 mg iron- 800 mcg Tablet 1 tab PO DAILY Isha (PF) 275 mg/1.1 mL Auto-Injector 275 mg SUBCUT QWEEK Primary Care Provider: Sebastián Shields Referrals: Sebastián Shields MD [Primary Care Provider] - As Needed Disposition Disposition: Home, Self Care Discharge Date/Time: 05/17/23 04:37
[2023-05-17 03:03] LABS: Absolute Lymphocyte Count 2.53 X10^3/uL (0.83-4.51); Absolute Neutrophil Count 3.6 X10^3/uL (2.0-7.7); Basophil# 0.04 X10^3/uL; Basophil% 0.6 % (0-1); Eosinophil# 0.33 X10^3/uL; Eosinophils% 4.7 % (0-5); Hematocrit 34.5 % (37-47); Hemoglobin 11.5 g/dL (12.0-15.0); Lymphocyte # 2.53 X10^3/ul (0.83-4.51); Lymphocyte % 35.8 % (19-41); Mean Corp Hgb Conc 33.3 g/dL (32-36); Mean Corpuscular Hgb 29.5 pg (27.0-32.0); Mean Corpuscular Volume 88.5 fL (81-99); Mean Platelet Vol. 10.4 fl (6.2-12.0); Monocyte# 0.53 X10^3/uL; Monocyte% 7.5 % (0-10); NRBC Flagged by Analyzer 0 % (0-5); Neutrophil # 3.63 X10^3/uL (2.7-7.7); Neutrophil % 51.3 % (47-70); Platelet Count 192 K/mm3 (150-450); RBC Distribution Width CV 12.4 % (11.6-14.6); White Blood Count 7.1 K/mm3 (4.4-11.0)
[2023-05-17 03:12] LABS: Internal QC Validated? YES +Cl - CLEAR BKGD; Pregnancy, Serum, hCG Quali. NEGATIVE Negative
[2023-05-17] MEDS: Ketorolac 30 MG/ML Syringe IV (03:12)
[2023-05-17] MEDS: Ondansetron 4 MG/2 ML Vial IV (03:12)
[2023-05-17] MEDS: 0.9% Normal Saline (1000mL) 1,000 ML 1000 ML IV (03:13)
[2023-05-17 03:24] LABS: D-Dimer Quantitative (DVT/PE) 0.33 FEU/ug/m (0.27-0.49)
[2023-05-17 03:30] LABS: ALB/GLOB Ratio 1.1 RATIO (0.9-2.4); AST(SGOT) 14 U/L (15-37); Alanine Aminotransfer ALT/SGPT 18 U/L (13-56); Albumin, Serum 3.2 g/dL (3.2-5.0); Alkaline Phosphatase 64 U/L (45-117); Anion Gap 5 (5-15); BUN 18 mg/dL (7-18); BUN/Creat Ratio 14.6 RATIO (10-20); Calcium,Total 8.6 mg/dL (8.5-10.1); Chloride 106 mmol/L (98-107); Creatinine, Serum 1.23 mg/dL (0.55-1.02); EST Glomerular Filtration Rate 53 mL/min (>60); Est Glom Filt Rate - Afr Amer 64 mL/min (>60); Estimated Creatinine Clearance 46.29 ml/min; Globulin 2.9 g/dL (2.2-4.2); Glucose 130 mg/dL (74-106); Potassium 3.5 mmol/L (3.5-5.1); Protein, Total 6.1 g/dL (6.4-8.2); Sodium Level 140 mmol/L (136-145); Troponin-I HS < 3 pg/mL (3.0-54.0)
[2023-05-17 04:30] VITALS: BP 100/73; PULSE 71; RESP 16; TEMP 36.8; O2SAT 99
== END 2023-05-17 04:37 | disposition home or self-care (01) ==
PROVIDERS: Emergency Provider Emergency Medicine; PCP Family Medicine; Visit Provider Emergency Medicine
DX: R42 Dizziness and giddiness (principal); R11.0 Nausea; M54.9 Dorsalgia, unspecified
CPT/HCPCS: 71045; 80053; 84484; 84703; 85025; 85379; 93005; 96361; 96374; 96375; 99283; J7030; A4216; J2405

== ENCOUNTER 2023-06-24 07:23 | Emergency (ER) | payer MEDICAID, SELFPAY ==
[2023-06-24 07:24] VITALS: BP 110/81; PULSE 96; RESP 17; TEMP 36.4; O2SAT 99; BMI 20.1
--- NOTE | 2023-06-24 07:47 | EKG12_ITS ---
Test Reason : CP Blood Pressure : / mmHG Vent. Rate : 074 BPM Atrial Rate : 074 BPM P-R Int : 116 ms QRS Dur : 072 ms QT Int : 362 ms P-R-T Axes : 065 -01 055 degrees QTc Int : 401 ms Normal sinus rhythm Normal ECG Confirmed by Raffy Whitlock ([id number]), packing machine operator MEETA DELAROSA ([id number]) on 06/27/2023 8:43:15 AM Referred By: KEREN Confirmed By:Raffy Whitlock
--- NOTE | 2023-06-24 07:59 | EX.ED.DYSGE1 ---
HPI History of Present Illness Chief Complaint: Abd Pain Informant: patient Narrative Narrative: 32-year-old female presenting to the emergency room chief complaint abdominal and chest pain. Patient states for the past 3 days she has had pain in the lower abdomen in the upper abdomen in the mid chest the upper back the low back the mid back the left shoulder and the upper neck. She states that eating seems to make this worse. No symptoms when she lays down flat. No vomiting diarrhea excessive gas or burning like reflux. Patient has had prior nephrectomy for kidney cancer. He denies any known pancreatic or biliary issues. No dyspnea or cough. She sees Dr. Shields for primary care. [facility] Medical History labor in third trimester History of delivery Elevated AFP Trichomoniasis Chlamydia Renal cell carcinoma Home Medications ?Medication ?Instructions ?Recorded ?Last Taken ?Type ferrous sulfate 325 mg (65 mg 325 mg PO QODAY 04/29/22 Unknown History iron) tablet (Iron (ferrous sulfate)) hydroxyprogest(PF)(preg presv) 275 275 mg subcut QWEEK 04/29/22 Unknown History mg/1.1 mL subcut auto-inject ([place] (PF)) vit no.95-ferrous 1 tab PO DAILY 04/29/22 Unknown History fumarate 28 mg-folic acid 800 mcg tablet () omeprazole 20 mg capsule,delayed 20 mg PO BID #28 caps 06/24/23 Unknown Rx release sucralfate 1 gram tablet (Carafate) 1 g PO Q6H 2 weeks #56 tabs 06/24/23 Unknown Rx Allergy/AdvReac Type Severity Reaction Status Date / Time No Known Allergies Allergy Verified 05/17/23 02:13 Social History Smoking Status: Never smoker ROS ROS ED Constitutional Constitutional ED: Denies chills, fever(s) or weight loss Eyes Eyes: Denies change in vision or diplopia ENT ENT ED: Denies ear pain, rhinorrhea or sore throat Cardiovascular Cardiovascular: Reports chest pain; Denies orthopnea, palpitations or racing heartbeat Respiratory/Chest Respiratory/Chest: Denies cough, dyspnea or orthopnea Gastrointestinal Gastrointestinal: Reports abdominal pain; Denies diarrhea, nausea or vomiting Genitourinary Genitourinary ED: Denies dysuria, hematuria or urinary frequency Musculoskeletal Musculoskeletal: Reports back pain and neck pain; Denies arthralgias or myalgias Integumentary Denies abscess or rash Neurologic Neurologic: Denies headache(s) or weakness Psychiatric Psychiatric: Denies anxiety, depression, suicidal ideation or suicidal thoughts Endocrine Endocrinology: Denies polydipsia, polyphagia or polyuria Allergic/Immunologic Allergic/Immunologic ED: Denies mouth swelling, tongue swelling or urticaria EXAM Physical Exam Const Vital Signs: 06/24/23 07:24 06/24/23 08:30 06/24/23 09:00 Temperature 97.6 F L Temperature Source Temporal Pulse Rate 96 77 71 Respiratory Rate 17 18 23 H Blood Pressure 110/81 H 102/71 120/78 Blood Pressure Mean 90 81 87 Pulse Ox 99 99 99 Oxygen Delivery Method Room Air Room Air Positive well nourished and well developed General Appearance ED: well developed HEENT Reports normocephalic, head/scalp atraumatic and moist mucous membranes Eyes PERRL and EOMs intact bilaterally Neck no lymphadenopathy, supple and no JVD Resp normal respiratory effort and clear to auscultation bilaterally Cardio regular rate, regular rhythm and no murmurs GI GI Narrative: mild ttp abd soft Inspection: Negative for abdominal distention Auscultation: normoactive bowel sounds Palpation: soft and tender epigastric, LLQ and suprapubic Back/Spine no CVA tenderness and normal ROM Extremity normal to inspection General Extremety ED: Negative for edema General Extremity: Negative for edema Neuro oriented x3 and CN's II-XII intact bilaterally Sensorium / Orientation: alert Motor Exam: strength 5/5 throughout Psych mental status grossly normal Mood & Affect: Negative for depressed or tearful Skin no rashes or lesions noted and no wounds MDM MDM MDM Narrative Medical decision making narrative: Going up and interpretation of the chest x-ray is no acute process. Troponin is 3. Lipase 33. LFTs are within normal limits. BMP shows a potassium of 3.2 otherwise negative. D-dimer less than 0.27. CBC with a white count of 6.1 hemoglobin 12.7 platelet count of 236. Urinalysis shows some microscopic hematuria and negative test. Patient is had no events on the monitor. I do wonder if this could be gastritis/GERD. BUS does not demonstrate obvious Garcia's or pericholecystic fluid. Her tenderness tends to be more in the epigastric region. Wonder if the chest upper back areas are referred pain. Will place her on omeprazole as well as Carafate. Would have her follow-up 1 to 2 weeks with her doctor. Return if worsening or any change in symptomology. Patient is understanding of the plan is comfortable with the History & Record Review Discussion w/independent historian: Patient Lab Data Attestation: I reviewed the patient's lab results. Labs: Laboratory Results - last 24 hr 06/24/23 06/24/23 07:26 08:10 WBC 6.1 RBC 4.21 Hgb 12.7 Hct 38.2 MCV 90.7 MCH 30.2 MCHC 33.2 RDW Std Deviation 40.8 RDW Coeff of Biju 12.4 Plt Count 236 MPV 11.1 Immature Gran % (Auto) 0.300 Neut % (Auto) 52.8 Lymph % (Auto) 36.1 [place] % (Auto) 7.0 Eos % (Auto) 3.1 Baso % (Auto) 0.7 Absolute Neuts (auto) 3.2 Absolute Lymphs (auto) 2.21 Nucleated RBC % 0 D-Dimer Quant (PE/DVT) < 0.27 L Sodium 140 Potassium 3.2 L Chloride 106 Carbon Dioxide 30.0 Anion Gap 4 L BUN 10 Creatinine 0.98 Estim Creat Clear Calc 58.10 Est GFR (MDRD) Af Amer 84 Est GFR (MDRD) Non-Af 69 BUN/Creatinine Ratio 10.3 Glucose 98 Calcium 8.8 Total Bilirubin 1.10 H Direct Bilirubin 0.27 AST 21 ALT 23 Alkaline Phosphatase 63 Troponin I High Sens 3 Total Protein 6.9 Albumin 3.7 Globulin 3.2 Lipase 33 Urine Color Yellow Urine Clarity Sl. Cloudy Urine pH 8.0 Ur Specific [place] 1.015 Urine Protein Negative Urine Glucose (UA) Normal Urine Ketones Negative Urine Occult Blood 150 H Urine Nitrite Negative Urine Bilirubin Negative Urine Urobilinogen Normal Ur Leukocyte Esterase 25 H Urine RBC 10-25 SEEN Urine WBC 0-5 SEEN Ur Squamous Epith Cells 0-5 SEEN Urine Bacteria 0 SEEN Urine Mucus 0 SEEN Urine Test Negative EKG Initial EKG: Attestation: I personally reviewed and interpreted this EKG as follows: Comments: Normal sinus rhythm ventricular 74 bpm Discharge Plan Triage Chief Complaint: Abd Pain ED Provider: Que Toussaint Dx/Rx/DC Orders Clinical Impression: Abdominal pain, Chest pain, Gastritis Instructions: ED Gastritis (Adult) Prescriptions: New omeprazole 20 mg capsule,delayed release(DR/EC) 20 mg PO BID Qty: 28 0RF sucralfate [Carafate] 1 gram tablet 1 g PO Q6H 14 Days Qty: 56 0RF No Action ferrous sulfate [Iron (ferrous sulfate)] 325 mg (65 mg iron) Tablet 325 mg PO QODAY PNV cmb#95-ferrous fumarate-FA [] 28 mg iron- 800 mcg Tablet 1 tab PO DAILY [place] (PF) 275 mg/1.1 mL Auto-Injector 275 mg SUBCUT QWEEK Primary Care Provider: Sebastián Shields Referrals: Sebastián Shields MD [Primary Care Provider] - 1-2 Weeks Print Language: Czech Disposition Disposition: Home, Self Care
[2023-06-24 08:19] LABS: Bacteria 0 SEEN /hpf (None Seen); Mucous, Urine 0 SEEN /hpf (<or=2+)
[2023-06-24 08:30] VITALS: BP 102/71; PULSE 77; RESP 18; O2SAT 99
[2023-06-24 08:35] LABS: Absolute Lymphocyte Count 2.21 X10^3/uL (0.83-4.51); Absolute Neutrophil Count 3.2 X10^3/uL (2.0-7.7); Basophil# 0.04 X10^3/uL; Basophil% 0.7 % (0-1); Eosinophil# 0.19 X10^3/uL; Eosinophils% 3.1 % (0-5); Hematocrit 38.2 % (37-47); Hemoglobin 12.7 g/dL (12.0-15.0); Lymphocyte # 2.21 X10^3/ul (0.83-4.51); Lymphocyte % 36.1 % (19-41); Mean Corp Hgb Conc 33.2 g/dL (32-36); Mean Corpuscular Hgb 30.2 pg (27.0-32.0); Mean Corpuscular Volume 90.7 fL (81-99); Mean Platelet Vol. 11.1 fl (6.2-12.0); Monocyte# 0.43 X10^3/uL; NRBC Flagged by Analyzer 0 % (0-5); Neutrophil # 3.24 X10^3/uL (2.7-7.7); Neutrophil % 52.8 % (47-70); Platelet Count 236 K/mm3 (150-450); RBC Distribution Width CV 12.4 % (11.6-14.6); RBC Distribution Width SD 40.8 fl (35.1-43.9); Red Blood Count 4.21 M/mm3 (4.2-5.4); White Blood Count 6.1 K/mm3 (4.4-11.0)
[2023-06-24 08:50] LABS: AST(SGOT) 21 U/L (15-37); Alanine Aminotransfer ALT/SGPT 23 U/L (13-56); Albumin, Serum 3.7 g/dL (3.2-5.0); Alkaline Phosphatase 63 U/L (45-117); Anion Gap 4 (5-15); BUN 10 mg/dL (7-18); BUN/Creat Ratio 10.3 RATIO (10-20); Bilirubin, Direct 0.27 mg/dL (0.00-0.30); Calcium,Total 8.8 mg/dL (8.5-10.1); Chloride 106 mmol/L (98-107); Creatinine, Serum 0.98 mg/dL (0.55-1.02); EST Glomerular Filtration Rate 69 mL/min (>60); Est Glom Filt Rate - Afr Amer 84 mL/min (>60); Globulin 3.2 g/dL (2.2-4.2); Glucose 98 mg/dL (74-106); Lipase 33 U/L (13-75); Potassium 3.2 mmol/L (3.5-5.1); Protein, Total 6.9 g/dL (6.4-8.2); Sodium Level 140 mmol/L (136-145); Troponin-I HS 3 pg/mL (3.0-54.0)
[2023-06-24 08:57] LABS: Color, Urine Yellow (Yellow); Glucose, Dipstick Normal (Normal); Ketone-Dipstick Negative (Negative); Leukocyte Esterase-Dipstick 25 /ul (Negative); Nitrite-Dipstick Negative (Negative); Occult Blood-Urine 150 /ul (Negative); Protein-Dipstick Negative (Negative); Specific Gravity, Urine 1.015 (1.002-1.030); Urine Bilirubin Dipstick Negative (Negative); Urine Clarity Sl. Cloudy (Clear); Urine Urobilinogen Normal (Normal)
[2023-06-24 09:00] VITALS: BP 120/78; PULSE 71; RESP 23; O2SAT 99
[2023-06-24 09:27] LABS: D-Dimer Quantitative (DVT/PE) < 0.27 FEU/ug/m (0.27-0.49)
--- NOTE | 2023-06-24 09:44 | RAD_ITS ---
STUDY: X-RAY CHEST REASON FOR EXAM: Female, 32 years old. Chest pain TECHNIQUE: Single AP portable view of the chest. COMPARISON: Comparison is made with prior study May 17, 2023. FINDINGS: EKG electrodes are seen. The lungs are clear and expanded. There is no demonstrated pleural abnormality. Normal size heart. Normal mediastinum and huyen. Normal visualized pulmonary arteries. Normal visualized aortic arch and descending thoracic aorta. Normal visualized thoracic spine. Normal visualized ribs, clavicles, and shoulders. There is no demonstrated abnormality of the visualized soft tissue structures of the upper abdomen. RAD/Chest 1 View (Portable) IMPRESSION: Normal x-ray examination of the chest. Electronically Signed: Storm Rodriguez MD at 10:00 EDT ,
[2023-06-24 09:47] LABS: Red Blood Cells-Urine 10-25 SEEN /hpf (0-5); Squamous Epithelial Cells - UA 0-5 SEEN /hpf (5-10); White Blood Cells 0-5 SEEN /hpf (0-5)
[2023-06-24 09:50] LABS: Internal QC Validated? YES +Cl - CLEAR BKGD; Pregnancy, Urine Negative Negative; Record Kit Lot#,Urine Preg HCG0000718089
[2023-06-24 10:00] VITALS: BP 117/72; PULSE 71; RESP 16; TEMP 36.6; O2SAT 99
== END 2023-06-24 10:58 | disposition home or self-care (01) ==
PROVIDERS: Emergency Provider Emergency Medicine; PCP Family Medicine; Visit Provider Emergency Medicine
DX: R07.9 Chest pain, unspecified (principal); K29.70 Gastritis, unspecified, without bleeding; R10.9 Unspecified abdominal pain; Z90.5 Acquired absence of kidney; Z85.528 Personal history of other malignant neoplasm of kidney
CPT/HCPCS: 71045; 80048; 80076; 81001; 81025; 83690; 84484; 85025; 85379; 93005; 99283; A4216

== ENCOUNTER 2024-04-28 15:37 | Emergency (ER) | payer MEDICAID, SELFPAY ==
[2024-04-28 15:38] VITALS: BP 112/77; PULSE 82; RESP 14; TEMP 35.7; O2SAT 98; BMI 20.4
--- NOTE | 2024-04-28 16:13 | EDS_ITS ---
HPI HPI - GI History of Present Illness Chief Complaint: Abd Pain Informant: patient Narrative Narrative: 33-year-old female presenting with 2 to 3 days of suprapubic abdominal discomfort and pain in her low back nonlateralizing. No fevers, chills, vomiting but she has had some nausea on occasion. She has had some urinary frequency but denies any dysuria or hematuria. No vaginal symptoms. Denies known . Denies any abnormal bowel movements or blood. The only prior surgery she had in her abdomen was a small mass that was removed from one of her kidneys ended up being malignant but she did not require any other treatments for it. [facility] Medical History labor in third trimester History of delivery Elevated AFP Trichomoniasis Chlamydia Renal cell carcinoma Home Medications ?Medication ?Instructions ?Recorded ?Last Taken ?Type ferrous sulfate 325 mg (65 mg 325 mg PO QODAY 04/29/22 Unknown History iron) tablet (Iron (ferrous sulfate)) hydroxyprogest(PF)(preg presv) 275 275 mg subcut QWEEK 04/29/22 Unknown History mg/1.1 mL subcut auto-inject ([place] (PF)) vit no.95-ferrous 1 tab PO DAILY 04/29/22 Unk nown History fumarate 28 mg-folic acid 800 mcg tablet () omeprazole 20 mg capsule,delayed 20 mg PO BID #28 caps 06/24/23 Unknown Rx release sucralfate 1 gram tablet (Carafate) 1 g PO Q6H 2 weeks #56 tabs 06/24/23 Unknown Rx Allergy/AdvReac Type Severity Reaction Status Date / Time No Known Allergies Allergy Verified 04/28/24 15:38 Social History Smoking Status: Never smoker ROS ROS ED Constitutional Constitutional ED: Denies chills or fever(s) Eyes Eyes: Denies change in vision or diplopia ENT ENT ED: Denies rhinorrhea or sore throat Cardiovascular Cardiovascular: Denies chest pain or palpitations Respiratory/Chest Respiratory/Chest: Denies cough Gastrointestinal Gastrointestinal: Reports abdominal pain and nausea; Denies diarrhea or vomiting Genitourinary Genitourinary ED: Reports urinary frequency; Denies dysuria or hematuria Musculoskeletal Musculoskeletal: Reports back pain; Denies neck pain Integumentary Denies abscess or rash Neurologic Neurologic: Denies headache(s), paresthesias or weakness Psychiatric Psychiatric: Denies anxiety or suicidal thoughts EXAM Physical Exam Const Vital Signs: 04/28/24 15:38 04/28/24 17:38 Temperature 96.3 F L Temperature Source Temporal Pulse Rate 82 84 Respiratory Rate 14 19 H Blood Pressure 112/77 Blood Pressure Mean 88 Pulse Ox 98 Oxygen Delivery Method Room Air Positive well nourished and well developed General Appearance ED: well developed and NAD HEENT Reports moist mucous membranes normocephalic and atraumatic Eyes PERRL and EOMs intact bilaterally Neck full ROM and supple Resp normal respiratory effort and clear to auscultation bilaterally Cardio regular rate, regular rhythm and no murmurs GI non-distended GI Narrative: Mild suprapubic and epigastric tenderness no guarding or rebound tenderness or other areas of tenderness. Auscultation: normoactive bowel sounds Palpation: soft Back/Spine no CVA tenderness General Back: other FROM Extremity normal to inspection General Extremety ED: Negative for edema, pulses abnormal or tenderness General Extremity: Negative for edema or pulses abnormal Neuro oriented x3, CN's II-XII intact bilaterally, no sensory deficits noted and gait normal Sensorium / Orientation: awake and alert Motor Exam: strength 5/5 throughout Psych mental status grossly normal and thought process normal Skin no rashes or lesions noted and no wounds MDM MDM MDM Narrative Medical decision making narrative: Started with urinalysis and urine , evaluate for cystitis and/or ectopic . Urinalysis is normal, and that test is negative. Given that considering other etiologies I obtained some screening labs, she has no leukocytosis, and no shift with a total white blood count that is low normal 6.7. I offered her a dose of Toradol but she declined it because the pain is not that bad. She presents here when ultrasound is not in-house and available, and I do not think she has an emergent medical condition requiring an emergent scan, and I do not think she needs advanced imaging of her entire abdomen/pelvis in the form of a CT right now which I discussed with her. She is in agreement, she would like the ultrasound if and when it is available, and I think it would be reasonable to have her obtain an outpatient pelvic ultrasound, to look for ovarian pathology. Given that her pain is not severe, unless suspicious for torsion so I think she can be safely discharged and have it as an outpatient. Lab Data Attestation: I reviewed the patient's lab results. Labs: Laboratory Results - last 24 hr 04/28/24 04/28/24 16:05 17:15 WBC 6.7 RBC 3.84 L Hgb 11.9 L Hct 34.8 L MCV 90.6 MCH 31.0 MCHC 34.2 RDW Std Deviation 39.8 RDW Coeff of Biju 12.1 Plt Count 210 MPV 12.0 Immature Gran % (Auto) 0.100 Neut % (Auto) 59.6 Lymph % (Auto) 28.8 [place] % (Auto) 7.0 Eos % (Auto) 3.9 Baso % (Auto) 0.6 Absolute Neuts (auto) 4.0 Absolute Lymphs (auto) 1.93 Nucleated RBC % 0 Sodium 140 Potassium 4.2 Chloride 104 Carbon Dioxide 26.2 Anion Gap 10 BUN 12 Creatinine 0.97 Estim Creat Clear Calc 58.15 Est GFR (MDRD) Non-Af 78 BUN/Creatinine Ratio 11.8 Glucose 121 H Calcium 8.9 Urine Color Yellow Urine Clarity Clear Urine pH 7.0 Ur Specific [place] 1.010 Urine Protein 15 H Urine Glucose (UA) Normal Urine Ketones Negative Urine Occult Blood 10 H Urine Nitrite Negative Urine Bilirubin Negative Urine Urobilinogen Normal Ur Leukocyte Esterase Negative Urine RBC 0-5 SEEN Urine WBC 0-5 SEEN Ur Squamous Epith Cells 0-5 SEEN Urine Bacteria 0 SEEN Urine Mucus 0 SEEN Urine Test Negative Discharge Plan Triage Chief Complaint: Abd Pain ED Provider: Tad Busch Dx/Rx/DC Orders Clinical Impression: Pelvic pain in female Instructions: ED Pelvic Pain, Unknown Cause Prescriptions: No Action ferrous sulfate [Iron (ferrous sulfate)] 325 mg (65 mg iron) Tablet 325 mg PO QODAY PNV cmb#95-ferrous fumarate-FA [] 28 mg iron- 800 mcg Tablet 1 tab PO DAILY Isha (PF) 275 mg/1.1 mL Auto-Injector 275 mg SUBCUT QWEEK omeprazole 20 mg capsule,delayed release(DR/EC) 20 mg PO BID Qty: 28 0RF sucralfate [Carafate] 1 gram tablet 1 g PO Q6H 14 Days Qty: 56 0RF Other Ambulatory Orders: Transvaginal Non- (Routine) Timeframe: 3 Days Facility: [facility] - Location: [facility] Ordered By: Dr. Tad Busch Primary Care Provider: Sebastián Shields Referrals: Yeni Millan MD [Med Staff - Active Staff] - (If you are still having pain after the ultrasound, follow-up for results and reevaluation) Print Language: Libyan Disposition Disposition: Home, Self Care
[2024-04-28 16:17] LABS: Bacteria 0 SEEN /hpf (None Seen); Mucous, Urine 0 SEEN /hpf (<or=2+)
[2024-04-28 16:29] LABS: Color, Urine Yellow (Yellow); Glucose, Dipstick Normal (Normal); Ketone-Dipstick Negative (Negative); Leukocyte Esterase-Dipstick Negative /ul (Negative); Nitrite-Dipstick Negative (Negative); Occult Blood-Urine 10 /ul (Negative); Protein-Dipstick 15 mg/dl (Negative); Urine Bilirubin Dipstick Negative (Negative); Urine Clarity Clear (Clear); Urine Urobilinogen Normal (Normal)
[2024-04-28 16:58] LABS: Internal QC Validated? YES +Cl - CLEAR BKGD; Pregnancy, Urine Negative Negative; Red Blood Cells-Urine 0-5 SEEN /hpf (0-5); Squamous Epithelial Cells - UA 0-5 SEEN /hpf (5-10); White Blood Cells 0-5 SEEN /hpf (0-5)
[2024-04-28 17:38] VITALS: PULSE 84; RESP 19
[2024-04-28 17:38] LABS: Absolute Lymphocyte Count 1.93 X10^3/uL (0.83-4.51); Basophil# 0.04 X10^3/uL; Basophil% 0.6 % (0-1); Eosinophil# 0.26 X10^3/uL; Eosinophils% 3.9 % (0-5); Hematocrit 34.8 % (37-47); Hemoglobin 11.9 g/dL (12.0-15.0); Lymphocyte # 1.93 X10^3/ul (0.83-4.51); Lymphocyte % 28.8 % (19-41); Mean Corp Hgb Conc 34.2 g/dL (32-36); Mean Corpuscular Volume 90.6 fL (81-99); Monocyte# 0.47 X10^3/uL; NRBC Flagged by Analyzer 0 % (0-5); Neutrophil # 3.99 X10^3/uL (2.7-7.7); Neutrophil % 59.6 % (47-70); Platelet Count 210 K/mm3 (150-450); RBC Distribution Width CV 12.1 % (11.6-14.6); RBC Distribution Width SD 39.8 fl (35.1-43.9); Red Blood Count 3.84 M/mm3 (4.2-5.4); White Blood Count 6.7 K/mm3 (4.4-11.0)
[2024-04-28 18:03] LABS: Anion Gap 10 (5-15); BUN 12 mg/dL (4-19); BUN/Creat Ratio 11.8 RATIO (10-20); Calcium,Total 8.9 mg/dL (7.6-11.0); Carbon Dioxide 26.2 mmol/L (21.0-32.0); Chloride 104 mmol/L (98-108); Creatinine, Serum 0.97 mg/dL (0.70-1.20); EST Glomerular Filtration Rate 78 (>60); Estimated Creatinine Clearance 58.15 ml/min (50-250); Glucose 121 mg/dL (70-99); Potassium 4.2 mmol/L (3.3-5.1); Sodium Level 140 mmol/L (133-145)
[2024-04-28 18:25] VITALS: BP 118/74; PULSE 78; RESP 18; TEMP 36.8; O2SAT 97
== END 2024-04-28 18:48 | disposition home or self-care (01) ==
PROVIDERS: Emergency Provider Emergency Medicine; PCP Family Medicine; Visit Provider Emergency Medicine
DX: R10.9 Unspecified abdominal pain (principal); R10.2 Pelvic and perineal pain; Z85.528 Personal history of other malignant neoplasm of kidney
CPT/HCPCS: 80048; 81001; 81025; 85025; 99282

== ENCOUNTER → 2024-05-21 | Outpatient (CLI) | payer MEDICAID, SELFPAY ==
--- NOTE | 2024-05-21 15:49 | US_ITS ---
PROCEDURE: TRANSVAGINAL NON- REASON FOR EXAM: PELVIC PAIN Midline pelvic pain. TECHNIQUE: Transvaginal pelvic ultrasound COMPARISON: None FINDINGS: LMP: May 19, 2024. Measurements: Uterus: 8.2 cm x 6.1 cm x 4 cm with a volume of 105.5 mL Endometrial Thickness: 5.3 mm Right Ovary: 2.8 cm x 2.1 cm x 1.5 cm with a volume of 4.72 mL. Left Ovary: 4.2 cm x 2 cm x 2.5 cm with a volume of 11 mL. Transvaginal sonography was performed to better visualize the endometrium. TRANSVAGINAL: Uterus: Unremarkable. Endometrium: 5.3 mm Right ovary: Unremarkable. Left ovary: 2.1 cm 11.4 cm x 1.5 cm cyst. Other adnexal findings: 1.7 cm x 1.3 cm x 1.6 cm right adnexal cyst. Cul-de-sac: No free intraperitoneal fluid identified. Tenderness: No tenderness US/Transvaginal Non- IMPRESSION: 1.7 cm x 1.3 cm x 1.6 cm right paraovarian cyst. 2.1 cm x 1.4 cm x 1.5 cm left ovarian cyst. Reading Location: [place] [id number]
== END | disposition home or self-care (01) ==
LOC: US 15:49
PROVIDERS: PCP Family Medicine; Referring Provider Emergency Medicine; Visit Provider Emergency Medicine
DX: R10.2 Pelvic and perineal pain (principal)
CPT/HCPCS: 76830

== ENCOUNTER 2024-11-14 03:09 | Emergency (ER) | payer MEDICAID, SELFPAY ==
[2024-11-14 03:11] VITALS: BP 123/93; PULSE 89; RESP 17; TEMP 36.7; O2SAT 100; BMI 20.4
[2024-11-14] MEDS: 0.9% Normal Saline (1000mL) 1,000 ML 999 ML IV (03:41)
[2024-11-14] MEDS: Lidocaine 2% Viscous15 ML UDC 15 ML PO (03:43)
[2024-11-14] MEDS: Pantoprazole Sodium 40 MG in 0.9% Normal Saline (100mL MB+) 100 ML 300 MG IV (03:43)
[2024-11-14 03:46] LABS: Hematocrit 35.8 % (37-47); Hemoglobin 12.3 g/dL (12.0-15.0); Immature Granulocytes Count 0.020 X10^3/uL (0.0-0.0); Mean Corp Hgb Conc 34.4 g/dL (32-36); Mean Corpuscular Volume 89.1 fL (81-99); Mean Platelet Vol. 10.7 fl (6.2-12.0); NRBC Flagged by Analyzer 0 % (0-5); Platelet Count 202 K/mm3 (150-450); RBC Distribution Width CV 12.0 % (11.6-14.6); RBC Distribution Width SD 39.1 fl (35.1-43.9); Red Blood Count 4.02 M/mm3 (4.2-5.4); White Blood Count 8.1 K/mm3 (4.4-11.0)
--- NOTE | 2024-11-14 03:46 | EDS_ITS ---
HPI History of Present Illness Chief Complaint: General Illness Informant: patient Narrative Narrative: Patient is a 34-year-old female with past medical history of renal cell carcinoma which she states was removed surgically years ago and did not require chemotherapy or radiation or daily antineoplastic medication. She states for the past week or so when she eats she will have a bout of loose stool/diarrhea. She states that there is no blood or discoloration to the stool. She denies any known sick contacts. She states there is no associated nausea or vomiting. She reports that there has been no recent antibiotic use or travel outside the country or livestock exposure. She denies any history of intestinal disorders such as IBS ulcerative colitis or Crohn's disease. She states that today she awoke with sensation of acid reflux which she does not normally have and also reports she has been having muscle aches. Therefore with the progression of symptoms as well as the persistent diarrhea she presents for evaluation Patient denies any family history of cardiac disease at a young age. She denies any history of hypertension hyperlipidemia diabetes or nicotine use. Patient denies any recent travel surgery or history of DVT/PE [facility] Medical History labor in third trimester History of delivery Elevated AFP Trichomoniasis Chlamydia Renal cell carcinoma Home Medications ?Medication ?Instructions ?Recorded ?Last Taken ?Type dicyclomine 20 mg tablet 20 mg PO 4X/DAY PRN Abdomina l 11/14/24 Unknown Rx bloating/spasm #28 tabs pantoprazole 40 mg tablet,delayed 40 mg PO DAILY 30 da ys #30 tabs 11/14/24 Unknown Rx release (Protonix) Allergy/AdvReac Type Severity Reaction Status Date / Time No Known Allergies Allergy Verified 11/14/24 03:10 Family History no significant family his Social History Smoking Status: Never smoker ROS ROS ED Constitutional Constitutional ED: Denies chills or fever(s) Eyes Eyes: Denies change in vision ENT ENT ED: Denies rhinorrhea or sore throat Cardiovascular Cardiovascular: Denies chest pain Respiratory/Chest Respiratory/Chest: Denies cough or dyspnea Gastrointestinal Gastrointestinal: Reports abdominal pain, diarrhea and other Details: Positive acid reflux ; Denies constipation, melena, nausea or vomiting Genitourinary Genitourinary ED: Denies dysuria Musculoskeletal Musculoskeletal: Reports myalgias; Denies back pain Integumentary Denies rash Neurologic Neurologic: Denies headache(s) Hematologic/Lymphatic Hematologic/Lymphatic: Denies easy bleeding or easy bruising EXAM Physical Exam Const Vital Signs: 11/14/24 03:11 11/14/24 03:11 Temperature 98.1 F Temperature Source Oral Pulse Rate 89 Respiratory Rate 17 Respiratory Effort Normal Respiratory Pattern Normal Blood Pressure 123/93 H Blood Pressure Mean 103 Pulse Ox 100 Oxygen Delivery Method Room Air Positive well nourished and well developed General Appearance ED: well developed; Negative for pallor HEENT Reports moist mucous membranes HEENT Narrative: Normocephalic atraumatic No tongue or lip swelling no oral lesions no airway edema or compromise; no secondary findings in the posterior pharynx to suggest infection Eyes PERRL and EOMs intact bilaterally General Eye ED: Negative for scleral icterus Neck supple Neck Narrative: No subcutaneous emphysema noted No nuchal rigidity or meningeal signs Chest Wall palpation of chest normal Chest Narrative: No reproducible pain with palpation No bony deformity or crepitance Resp normal respiratory effort and clear to auscultation bilaterally Resp Narrative: No nasal flaring retractions tachypnea or accessory muscle use Cardio regular rate and regular rhythm Rate: other Other Details: Heart is regular rate and rhythm without murmurs rubs or gallops Radial and carotid pulses are equal and symmetric GI non-tender, non-distended and no masses GI Narrative: Abdomen is soft nontender and nondistended with hyperactive bowel sounds. No vo luntary guarding or rigidity or pulsatile mass Auscultation: hyperactive bowel sounds Palpation: soft Back/Spine no CVA tenderness Extremity normal to inspection Extremity Narrative: No asymmetric edema no pitting edema negative Homans' sign bilaterally Neuro oriented x3, CN's II-XII intact bilaterally and no sensory deficits noted Sensorium / Orientation: alert Motor Exam: strength 5/5 throughout Psych mental status grossly normal Skin no rashes or lesions noted, no wounds and skin turgor normal General Skin Exam: Negative for jaundice or pallor MDM MDM MDM Narrative Medical decision making narrative: Patient presented to the ER with stable vitals. She reported bouts of diarrhea mainly after eating. I do feel that the symptoms are most likely functional diarrhea and not an infectious or inflammatory cause. However in order to rule out potential underlying infection as well as pancreatitis biliary colic complication acute kidney injury or electrolyte abnormality basic labs will be obtained. She reported chest discomfort but it is more so consistent with acid reflux/gastritis. She is low risk for cardiovascular disease as well. An EKG was obtained to check for ischemia or dysrhythmia and it was normal sinus rhythm without ischemic changes. It was compared to previous EKG from June 2023 and is very similar. After receiving IV hydration as well as a GI cocktail and IV Protonix patient reported resolution of symptoms. Therefore this time as vitals are stable abdomen remains soft and nonsurgical and overall workup is negative I do not feel there is need for further intervention. Patient should follow-up with GI to discuss further testing of her recurrent diarrhea as I do feel it is a functional diarrhea and not infectious or inflammatory cause. She will be started on Bentyl to help with abdominal discomfort as well as Protonix for her GERD but as overall workup is negative and she has stable vitals and a persistently soft abdomen she is otherwise safe for discharge History & Record Review Discussion w/independent historian: Patient Lab Data Attestation: I reviewed the patient's lab results. Labs: Laboratory Results - last 24 hr 11/14/24 03:39 WBC 8.1 RBC 4.02 L Hgb 12.3 Hct 35.8 L MCV 89.1 MCH 30.6 MCHC 34.4 RDW Std Deviation 39.1 RDW Coeff of Biju 12.0 Plt Count 202 MPV 10.7 Immature Gran % (Auto) 0.200 Neut % (Auto) 55.9 Lymph % (Auto) 32.2 [place] % (Auto) 7.5 Eos % (Auto) 3.7 Baso % (Auto) 0.5 Absolute Neuts (auto) 4.5 Absolute Lymphs (auto) 2.59 Nucleated RBC % 0 Sodium 139 Potassium 4.1 Chloride 103 Carbon Dioxide 27.0 Anion Gap 9 BUN 16 Creatinine 1.07 Estim Creat Clear Calc 52.21 Est GFR (MDRD) Non-Af 69 BUN/Creatinine Ratio 14.5 Glucose 138 H Calcium 9.1 Magnesium 1.3 L Total Bilirubin 0.39 Direct Bilirubin 0.17 AST 24 ALT 24 Alkaline Phosphatase 63 Total Protein 6.0 Albumin 4.0 Globulin 2.1 L Lipase 51 Serum , Qual NEGATIVE Discharge Plan Triage Chief Complaint: General Illness ED Provider: Lazaro Cruz Dx/Rx/DC Orders Clinical Impression: Diarrhea, GERD (gastroesophageal reflux disease), History of renal cell carcinoma Instructions: ED Diarrhea, Unknown Cause, ED GERD (Adult) Prescriptions: New dicyclomine 20 mg tablet 20 mg PO 4X/DAY PRN (Reason: Abdominal bloating/spasm) Qty: 28 0RF pantoprazole [Protonix] 40 mg tablet,delayed release (DR/EC) 40 mg PO DAILY 30 Days Qty: 30 2RF Primary Care Provider: Sebastián Shields Referrals: Yaw Scott DO [Med Staff - Active Staff, Gastroenterology] Sebastián Shields MD [Primary Care Provider, Medical] Activity Restrictions/Additional Instructions: Your workup today revealed no sign of heart damage or abnormal heart rhythm. Your history and exam is most consistent with a functional diarrhea and therefore please follow-up with gastroenterology to discuss further testing. Take the prescribed medications as directed to help control symptoms and return to the ER should you have any further concerns Print Language: [place] Disposition Disposition: Home, Self Care
[2024-11-14 04:00] LABS: Internal QC Validated? YES +Cl - CLEAR BKGD; Pregnancy, Serum, hCG Quali. NEGATIVE Negative; Record Kit Lot#, Serum Preg. 0000980607
[2024-11-14 04:11] LABS: AST(SGOT) 24 U/L (<=31); Alanine Aminotransfer ALT/SGPT 24 U/L (<=34); Albumin, Serum 4.0 g/dL (3.5-5.0); Alkaline Phosphatase 63 U/L (35-104); Anion Gap 9 (5-15); BUN 16 mg/dL (4-19); BUN/Creat Ratio 14.5 RATIO (10-20); Bilirubin, Direct 0.17 mg/dL (0.00-0.30); Calcium,Total 9.1 mg/dL (7.6-11.0); Carbon Dioxide 27.0 mmol/L (21.0-32.0); Chloride 103 mmol/L (98-108); Estimated Creatinine Clearance 52.21 ml/min (50-250); Globulin 2.1 g/dL (2.2-4.2); Glucose 138 mg/dL (70-99); Lipase 51 U/L (13-75); Magnesium 1.3 mg/dL (1.5-2.2); Potassium 4.1 mmol/L (3.3-5.1)
[2024-11-14 05:04] VITALS: BP 106/66; PULSE 71; RESP 16; TEMP 36.6; O2SAT 100
== END 2024-11-14 05:05 | disposition home or self-care (01) ==
PROVIDERS: Emergency Provider Emergency Medicine; PCP Family Medicine; Visit Provider Emergency Medicine
DX: R19.7 Diarrhea, unspecified (principal); K21.9 Gastro-esophageal reflux disease without esophagitis; Z85.89 Personal history of malignant neoplasm of other organs and systems
CPT/HCPCS: 80048; 80076; 83690; 83735; 84703; 85025; 93005; 96361; 96374; 99283; A4216